=== PATIENT | female | born 1955 | race Caucasian/White ===

== ENCOUNTER 2020-07-22 06:47 | Outpatient (REF) | payer MEDICARE, SELFPAY ==
[2020-07-22 12:17] LABS: Alanine Aminotransferase 13 U/L (0-31); Anion Gap 17 (12-20); Aspartate Amino Transferase 25 U/L (5-31); Blood Urea Nitrogen 19 mg/dL (9-16); Calcium 9.6 mg/dL (8.4-10.2); Carbon Dioxide 27 mmol/L (22-29); Chloride 104 mmol/L (96-108); Cholesterol 223 mg/dL; Estimated Glomerular Filt Rate 60; Glucose Fasting 82 mg/dL (60-99); HDL Cholesterol 66 mg/dL; LDL Cholesterol Calculated 135 mg/dl; Potassium 4.2 mmol/l (3.3-5.1); Sodium 144 mmol/L (135-145); Triglycerides 114 mg/dL
== END 2020-07-22 06:48 | disposition home or self-care (01) ==
LOC: HO.HMGCLDS 06:47
PROVIDERS: PCP Internal Medicine; Visit Provider Internal Medicine
DX: I10 Essential (primary) hypertension (principal); Z78.0 Asymptomatic menopausal state; E78.5 Hyperlipidemia, unspecified
CPT/HCPCS: 80048; 80061; 82306; 84450; 84460

== ENCOUNTER 2020-09-21 08:36 | Outpatient (REF) | payer MEDICARE, SELFPAY ==
--- NOTE | 2020-09-21 08:40 | MM_ITS ---
EXAMINATION: BONE DENSITOMETRY CLINICAL INDICATION: Asymptomatic menopausal state. COMPARISON: None (current study represents initial baseline exam). TECHNIQUE: Using a [employer] DXA System (software version: 13.1) manufactured by [employer], dual-energy x-ray absorptiometry was performed of the lumbar spine and left hip. The images are of good technical quality. Summary results are attached. FINDINGS: AP SPINE L1-L4: BMD 1.009 g/cm2, Z-score 1.0, T-score -1.4, osteopenia. LEFT FEMUR, NECK: BMD 0.581 g/cm2, Z-score -1.3, T-score -3.3, osteoporosis. LEFT FEMUR, TOTAL: BMD 0.604 g/cm2, Z-score -1.4, T-score -3.2, osteoporosis. IDENTIFIED RISK FACTORS: Menopausal. HISTORY OF FRACTURE: Humerus. MEDICATIONS: Calcium supplements or multivitamin. MM/XR DEXA axial skeleton IMPRESSION: 1. DIAGNOSIS: Osteoporosis based on the lowest T-score value of -3.3 in the femoral neck applying World Health Organization criteria. 2. 10-YEAR FRACTURE RISK PREDICTION, FRAX: According to the guidelines, FRAX calculation should only be performed on patients in the osteopenia bone density category. Therefore, FRAX was not performed on this patient.? 3. Treatment Recommendations: NOF guidelines recommend consideration for treatment in postmenopausal women and men age 50 and older presenting with the following: -A hip or vertebral (clinical or morphometric) fracture. -T-score less than or equal to -2.5 at the femoral neck or spine after appropriate evaluation to exclude secondary causes. -Low bone mass at the hip or spine and a 10-year fracture probability by FRAX of greater than or equal to 3% for hip fracture or greater than or equal to 20% for major osteoporotic fracture based on the [place] adapted WHO algorithm. 4. Other Recommendations: All treatment decisions require clinical judgment and consideration of individual patient factors, including patient preferences, comorbidities, previous drug use, risk factors not captured in the FRAX model (e.g. frailty, falls, vitamin D deficiency, increased bone turnover, interval significant decline in bone density) and possible under or overestimation of fracture risk by FRAX. Additional medical evaluation for secondary cause of low bone mineral density may be appropriate. FUTURE SCAN RECOMMENDATION: People with diagnosed cases of osteoporosis or at high risk for fracture should have regular bone mineral density tests. For patients eligible for Medicare, routine testing is allowed once every 2 years. The testing frequency can be increased to one year for patients who have rapidly progressing disease, those who are receiving or discontinuing medical therapy to restore bone mass, or have additional risk factors.
== END 2020-09-21 08:37 | disposition home or self-care (01) ==
LOC: HO.MAMMO 08:36
PROVIDERS: PCP Internal Medicine; Visit Provider Internal Medicine
DX: Z13.820 Encounter for screening for osteoporosis (principal); Z78.0 Asymptomatic menopausal state; Z12.31 Encounter for screening mammogram for malignant neoplasm of breast
CPT/HCPCS: 77080

== ENCOUNTER 2020-12-06 07:50 | Outpatient (REF) | payer MEDICARE, SELFPAY ==
--- NOTE | ~2020-12-06 | MM_ITS ---
EXAMINATION: MM SCREENING DIGITAL BREAST TOMOSYNTHESIS, BILATERAL CLINICAL INFORMATION: Screening. Asymptomatic. The lifetime risk of breast cancer based on the Tyrer-Cuzick Model is 2.8%. COMPARISON: Mammography: November 23, 2014 and studies dating back to July 16, 2007 TECHNIQUE: Digital breast tomosynthesis is performed in both the craniocaudal and mediolateral oblique views along with computer-aided detection (CAD). Synthesized 2D images are generated from the tomosynthesis. FINDINGS: The breasts are heterogeneously dense, which may obscure small masses (ACR BI-RADS breast composition Category c). There are no significant masses, abnormal calcifications, or other abnormalities. MM/MM tomosynthesis screening BI IMPRESSION: There are no significant changes from prior study. ASSESSMENT: BI-RADS 1: Negative RECOMMENDATION: Routine annual mammography screening. This patient's information was entered into a reminder system with a target due date for their next mammogram.
== END 2020-12-06 07:51 | disposition home or self-care (01) ==
LOC: HO.MAMMO 07:50
PROVIDERS: PCP Internal Medicine; Visit Provider Internal Medicine
DX: Z12.31 Encounter for screening mammogram for malignant neoplasm of breast (principal)
CPT/HCPCS: 77063; 77067

== ENCOUNTER 2021-04-26 08:43 | Outpatient (REF) | payer MEDICARE, SELFPAY ==
[2021-04-26 11:53] LABS: Alanine Aminotransferase 12 U/L (0-31); Aspartate Amino Transferase 25 U/L (5-31); Cholesterol 272 mg/dL; HDL Cholesterol 89 mg/dL; LDL Cholesterol Calculated 167 mg/dl; Triglycerides 81 mg/dL
[2021-04-26 12:15] LABS: Vitamin D 25-OH Total 53.1 ng/mL (>30)
== END 2021-04-26 08:44 | disposition home or self-care (01) ==
LOC: HO.HMGCLDS 08:43
PROVIDERS: PCP Internal Medicine; Visit Provider Internal Medicine
DX: E78.2 Mixed hyperlipidemia (principal); Z78.0 Asymptomatic menopausal state
CPT/HCPCS: 36415; 80061; 82306; 84450; 84460

== ENCOUNTER 2021-07-19 06:02 | Outpatient (REF) | payer MEDICARE, SELFPAY ==
[2021-07-19 12:35] LABS: Alanine Aminotransferase 18 U/L (0-31); Aspartate Amino Transferase 30 U/L (5-31); Cholesterol 231 mg/dL; HDL Cholesterol 97 mg/dL; LDL Cholesterol Calculated 106 mg/dl; Triglycerides 140 mg/dL
== END 2021-07-19 06:03 | disposition home or self-care (01) ==
LOC: HO.HMGCLDS 06:02
PROVIDERS: PCP Internal Medicine; Visit Provider Internal Medicine
DX: E78.2 Mixed hyperlipidemia (principal)
CPT/HCPCS: 36415; 80061; 84450; 84460

== ENCOUNTER 2022-01-12 08:31 | Outpatient (REF) | payer MEDICARE, SELFPAY ==
--- NOTE | ~2022-01-12 | MM_ITS ---
EXAMINATION: MM SCREENING DIGITAL BREAST TOMOSYNTHESIS, BILATERAL CLINICAL INFORMATION: Screening. Asymptomatic. The lifetime risk of breast cancer based on the Tyrer-Cuzick Model is 2.5%. COMPARISON: Mammography: December 06, 2020 and studies dating back to September 15, 2009 TECHNIQUE: Digital breast tomosynthesis is performed in both the craniocaudal and mediolateral oblique views along with computer-aided detection (CAD). Synthesized 2D images are generated from the tomosynthesis. FINDINGS: There are scattered areas of fibroglandular density (ACR BI-RADS breast composition Category b). There are no significant masses, abnormal calcifications, or other abnormalities. MM/MM tomosynthesis screening BI IMPRESSION: There are no significant changes from prior study. ASSESSMENT: BI-RADS 1: Negative RECOMMENDATION: Routine annual mammography screening. This patient's information was entered into a reminder system with a target due date for their next mammogram.
[2022-01-12 11:33] LABS: Alanine Aminotransferase 17 U/L (0-31); Aspartate Amino Transferase 32 U/L (5-31); Cholesterol 249 mg/dL; HDL Cholesterol 98 mg/dL; LDL Cholesterol Calculated 127 mg/dl; Triglycerides 120 mg/dL
== END 2022-01-12 08:32 | disposition home or self-care (01) ==
LOC: HO.MAMMO 08:31
PROVIDERS: PCP Internal Medicine; Visit Provider Internal Medicine
DX: E78.2 Mixed hyperlipidemia (principal); Z12.31 Encounter for screening mammogram for malignant neoplasm of breast
CPT/HCPCS: 36415; 77063; 77067; 80061; 84450; 84460

== ENCOUNTER 2022-08-07 07:08 | Outpatient (REF) | payer MEDICARE, SELFPAY ==
[2022-08-07 13:06] LABS: Blood Urea Nitrogen 10 mg/dL (9-16)
[2022-08-07 13:20] LABS: Alanine Aminotransferase 25 U/L (0-31); Anion Gap 11 (12-20); Aspartate Amino Transferase 41 U/L (5-31); Calcium 9.8 mg/dL (8.4-10.2); Carbon Dioxide 30 mmol/L (22-29); Chloride 105 mmol/L (96-108); Cholesterol 242 mg/dL; Estimated Glomerular Filt Rate > 60; Glucose Fasting 83 mg/dL (60-99); HDL Cholesterol 85 mg/dL; LDL Cholesterol Calculated 99 mg/dl; Potassium 3.9 mmol/L (3.3-5.1); Sodium 142 mmol/L (135-145); Triglycerides 290 mg/dL; Vitamin D 25-OH Total 49.4 ng/mL (>30)
== END 2022-08-07 07:09 | disposition home or self-care (01) ==
LOC: HO.HMGCLDS 07:08
PROVIDERS: PCP Internal Medicine; Visit Provider Internal Medicine
DX: M81.0 Age-related osteoporosis without current pathological fracture (principal); E78.2 Mixed hyperlipidemia; Z78.0 Asymptomatic menopausal state
CPT/HCPCS: 36415; 80048; 80061; 82306; 84450; 84460

== ENCOUNTER 2022-08-09 10:45 | Outpatient (AMB) | payer MEDICARE, SELFPAY ==
--- NOTE | 2022-08-09 10:48 | MHC.PC.OV ---
Vital Signs 08/09/22 10:55 Height 5 ft 1 in Weight 96 lb 8 oz BMI 18.2 BP 130/64 Blood Pressure Location Lt brachial Position Sitting Pulse 94 Pulse Source Pulse Oximeter Pulse Oximetry (%) 99 Oxygen Delivery Method Room Air Intake Visit Reasons: 6 months f/u Intake Note: Pt is here today for her 6 months Allergies No Known Allergies Allergy (Verified 09/29/23 01:16) Medication List - Last Reconciled 08/09/22 by Saira Crooks MD [id number] 1 tab PO DAILY rosuvastatin 5 mg PO 2XW Tobacco use date assessed: 08/09/22 Fall risk assessment: No Falls in past year Last assessed Fall Risk: 08/09/22 HPI 6 months f/u HPI Details 67-year-old lady with dyslipidemia, here today for follow-up. Currently takes rosuvastatin 5 mg taken 1 tablet twice a week, no problems with taking the medication. However she has been eating more shrimp, shellfish lately and recent fasting labs showed markedly elevated triglyceride levels as compared to last check, but LDL cholesterol is within normal limits. She also had the bone density scan done earlier this year which showed presence of osteoporosis, has an appointment to see Dr. Benson further evaluation and management. Does not take any vitamin-D or calcium supplements but last vitamin-D and calcium levels were within normal limits. No history of any fractures She is up-to-date with her COVID vaccination including the new COVID booster, has not yet had her flu shot or shingles vaccination or pneumonia vaccine. [facility] Medical History Dyslipidemia Mixed dyslipidemia Osteoporosis Degenerative disc disease, cervical Menopause Surgical History (Updated 12/20/23 @ 11:18 by Damaris Chino RN) Hx of colonoscopy Fracture of arm History of lumpectomy Family History Father No problems noted. Mother No problems noted. Brother No problems noted. Brother No problems noted. Sister No problems noted. Sister No problems noted. Sister No problems noted. Son No problems noted. Daughter No problems noted. Maternal Grandmother Breast cancer Social History Housing: House Alcohol intake: current Alcohol intake frequency: holidays/special occasions only Patient Tobacco Use Status: Former Tobacco user Years Smoked: 10 yrs e-Cigarette/Vaping Use: Never Used Second Hand Smoke Exposure: No Current occupational status: retired Cognitive needs: No Hearing needs: No Vision needs: Yes Questionnaire PHQ-9 Over the last 2 weeks, how often have you been bothered by any of the following problems? 1. Little interest or pleasure in doing things: not at all 2. Feeling down, depressed, or hopeless: not at all 3. Trouble falling or staying asleep, or sleeping too much: not at all 4. Feeling tired or having little energy: not at all 5. Poor appetite or overeating: not at all 6. Feeling bad about yourself - or that you are a failure or have let yourself or your family down: not at all 7. Trouble concentrating on things, such as reading the newspaper or watching television: not at all 8. Moving or speaking so slowly that other people could have noticed. Or the opposite - being so fidgety or restless that you have been moving around a lot more than usual: not at all 9. Thoughts that you would be better off or of hurting yourself in some way: not at all Total score: 0 Depression Screening Interpretation: Negative [id number] - PHQ-9 Billing: Yes Source: Developed by Drs. Bossman Glez, May Walker, Dmitri Matthews and colleagues, with an educational sonja from [employer]. Thrive Questionnaire Declines Thrive assessment: No Date Thrive assessed: 08/09/22 I am a: Patient What is your living situation today?: I have a steady place to live Within the past 12 months, did the food you bought not last and you didn't have the money to get more?: Never true Within the past 12 months, did you worry whether your food would run out before you got money to buy more?: Never true Do you have trouble paying for medicines?: No Do you have trouble getting transportation to medical appointments?: No Do you have trouble paying your heating and electricity bill?: No Do you have trouble taking care of your child, family member or friend?: No Do you have trouble with day-to-day activities such as bathing, preparing meals, shopping, managing finances, etc.?: No Are you currently unemployed and looking for a job?: No Are you interested in more education?: No MIKHAIL-7 AMB Questionnaire MIKHAIL-7 Date MIKHAIL - 7 assessed: 08/09/22 Feeling nervous, anxious, or on edge: 0 = Not at all Not being able to stop or control worryin = Not at all Worrying too much about different things: 0 = Not at all Trouble relaxin = Not at all Being so restless that it is hard to sit still: 0 = Not at all Becoming easily annoyed or irritable: 0 = Not at all Feeling afraid as if something awful might happen: 0 = Not at all Total MIKHAIL-7 score (0-4 normal; 5-9 mild; 10-14 moderate; 15-21 severe): 0 Source: Developed by Drs. Bossman Glez, May Walker, Dmitri Matthews and colleagues, with an educational sonja from [employer]. MIKHAIL-7 Assessment Billing MIKHAIL-7 Assessment Tool: MIKHAIL-7 Assessment 77338 Review of Systems Const Denies body aches, Denies fatigue, Denies fever(s), Denies headache(s) and Denies weakness Eyes Denies change in vision ENT Denies dizziness and Denies headache(s) Card Denies chest pain, Denies lightheadedness, Denies palpitations and Denies dyspnea Resp Denies cough and Denies dyspnea GI Denies abdominal pain, Denies change in bowel habits and Denies heartburn Musc Details: No history of fractures Reports no additional complaints Neuro Denies dizziness, Denies headache(s) and Denies weakness Endo Denies fatigue, Denies polydipsia, Denies polyuria and Denies palpitations Physical exam (Primary Care) Vital Signs: Last Vital Signs Pulse 94 08/09/22 10:55 BP 130/64 08/09/22 10:55 Pulse Ox 99 08/09/22 10:55 Oxygen Delivery Method Room Air 08/09/22 10:55 BMI result Body Mass Index 18.2 Tobacco/Smoking Status: Tobacco use Status Tobacco use date assessed 08/09/22 08/09/22 10:50 Patient Tobacco Use Status Former Tobacco user 08/09/22 10:50 e-Cigarette/Vaping Use Never Used 08/09/22 10:50 PHQ-9: PHQ-9 Score PHQ-9: Total score 0 08/09/22 11:07 Depression Screening Interpretation: Negative Thrive Assessment: Date of Thrive Assessment Date Thrive assessed 08/09/22 08/09/22 10:58 Const General: cooperative, comfortable and no acute distress Orientation/consciousness: patient oriented x3 Limitations: no limitations HENMT Ears: hearing grossly normal bilaterally General nose exam: Normal external nose present Mouth: Normal oral and palatal mucosa present, oropharynx normal and moist mucous membranes Eyes General: appearance normal, both eyes and all related structures Neck Neck: Yes full ROM, Yes no lymphadenopathy and Yes supple Resp Effort & Inspection: normal respiratory effort and able to speak in complete sentences Auscultation: clear to auscultation bilaterally Cardio Rate: regular rate Rhythm: regular rhythm Heart sounds: S1 normal heart sound present and S2 normal heart sound present GI Inspection: Yes normal to inspection Palpation (GI): Soft to palpation, nontender and no masses Auscultation: normal bowel sounds Back/Spine/Pelvis Cervical Spine: cervical ROM normal Thoracic/Lumbar Spine: thoracic and lumbar spine normal to inspection Neuro General: patient oriented x3, gait normal, tone normal, moves all extremities, Normal light touch and pain sensation and no focal motor deficits Cognition (Neuro): normal cognition Gait exam (Neuro): Normal gait present Motor exam (neuro): 5/5 motor strength present throughout Extrem General: Yes full ROM, Yes no joint enlargement, Yes no clubbing, cyanosis or edema, Yes no calf tenderness and Yes normal gait Immunizations pneumoc 20-swetha conj-dip cr(PF) 0.5 mL IM syringe Performing Provider: Saira Crooks MD Performing Location: [facility] Administered by: Vanessa Carmichael CMA on 08/09/22 11:31 Dose Route Admin Location Dispensed Lot Number Expiration Date [employer] 0.5 mL IM Left Deltoid 0.5 mL [id number] 12/08/22 [employer] VIS Given Date VIS Provided VIS Publication Date 08/09/22 Single Vaccine 21 Eligibility Eligibility Date Funding Source Not VFC Eligible 08/09/22 Private Results Reviewed Results Reviewed: NTERED: 08/07/22-[address]: ORDERED: Met Prof Fast, AST, ALT, Lipid Panel, Vitamin D 25-OH Test Result Flag Reference Site Sodium 142 135-145 mmol/L Potassium 3.9 3.3-5.1 mmol/L CL 105 96-108 mmol/L CO2 30 H 22-29 mmol/L Gap 11 L 12-20 BUN 10 9-16 mg/dL Creat 0.75 0.5-1.4 mg/dL EGFR > 60 NOTE: For -[place] individuals, multiply the result by 1.210. Chronic Kidney Disease: Estimated GFR < 60 mL/min/1.73m2 Severe Kidney Disease: Estimated GFR < 15 mL/min/1.73m2 FBS 83 60-99 mg/dL CA 9.8 8.4-10.2 mg/dL AST (GOT) 41 H 5-31 U/L ALT (GPT) 25 0-31 U/L Triglyceride 290 mg/dL Desirable Triglyceride: less than 150 mg/dL Borderline High Triglyceride 150-199 mg/dL High Triglyceride: 200-499 mg/dL Very High Triglyceride: greater than or equal to 5OO mg/dL Chol 242 mg/dL Desirable Cholesterol: less than 200 mg/dL Borderline High Cholesterol: 200-239 mg/dL High Cholesterol: greater than 239 mg/dL LDL Calculated 99 mg/dl Desirable LDL: less than 100 mg/dL Near Optimal/Above Optimal LDL: 110-129 mg/dL Borderline High LDL: 130-159 mg/dL High LDL: 160-189 mg/dL Very High LDL: greater than or equal to 190 mg/dL HDL 85 mg/dL Desirable HDL: greater than 40 mg/dL Note: This HDL assay may give artificially low results in patients with liver disease. Vit D 25-OH Tot 49.4 >30 ng/mL Health Based Reference Values* < 20 ng/mL Deficient 20-30 ng/mL Insufficient > 30 ng/mL Sufficient Assessment and Plan Assessment & Plan (1) Osteoporosis: Code(s): M81.0 - Age-related osteoporosis without current pathological fracture Qualifiers: Osteoporosis type: age-related Presence of current pathological fracture: without current pathological fracture Qualified Code(s): M81.0 - Age-related osteoporosis without current pathological fracture Plan: Patient advised to do regular weight-bearing exercise at least 15 minutes daily, start taking gujq-vot-zhszarn vitamin D3 at 2000 units daily, and take adequate calcium from dietary sources. Patient has an appointment for endocrine consult with Dr. Benson already scheduled, to discuss further treatment and management of her osteoporosis (2) Dyslipidemia: Code(s): E78.5 - Hyperlipidemia, unspecified Plan: Reviewed recent fasting lipid profile with patient with elevated triglycerides and normal LDL cholesterol . Continue with rosuvastatin 5 mg taken 1 tablet twice a week, and advised to start taking [id number]-btcnkwo [place] 3 fatty acid supplements , in addition to adherence to low-cholesterol diet cutting back on her intake of shrimp and shellfish, and regular exercise, at least 30 minutes 3 to 4 times a week. Advised patient to make healthy food choices, eat more fruits, vegetables, whole grains, wild caught fish and low-fat dairy. Limit amount of meat and fried or fatty food products, as well as processed foods and fast foods. Follow-up scheduled with repeat fasting lipid panel in 4 months. (3) Need for pneumococcal vaccine: Code(s): Z23 - Encounter for immunization Plan: Prevnar 20 given today mild reminded to get her flu shot for this year and her shingles vaccination, both given at the pharmacy Orders: Orders Lipid Panel 6 Months E78.5 - Hyperlipidemia, unspecified Aspartate Amino Transferase 6 Months E78.5 - Hyperlipidemia, unspecified Alanine Aminotransferase 6 Months E78.5 - Hyperlipidemia, unspecified Pneumococcal 20 Immunization 08/09/22 Z23 - Encounter for immunization Medications: Refilled rosuvastatin 5 mg PO 2XW 26 tabs 4RF E78.2 - Mixed hyperlipidemia Coding Level of Care Code Est Pt Level 4 (84234) Diagnoses Age-related osteoporosis without current pathological fracture M81.0 Osteoporosis type: age-related Presence of current pathological fracture: without current pathological fracture Dyslipidemia E78.5 Need for pneumococcal vaccine Z23 Additional Codes MIKHAIL-7 Assessment Billing - MIKHAIL-7 Assessment Tool: MIKHAIL-7 Assessment 09857 ([id number])
[2022-08-09 10:55] VITALS: BP 130/64; PULSE 94; O2SAT 99; BMI 18.2
== END 2022-08-09 16:24 | disposition home or self-care (01) ==
LOC: HO.HMGC 10:45
PROVIDERS: PCP Internal Medicine; Visit Provider Internal Medicine
DX: M81.0 Age-related osteoporosis without current pathological fracture (principal); E78.5 Hyperlipidemia, unspecified; Z23 Encounter for immunization
CPT/HCPCS: 99499

== ENCOUNTER 2022-10-25 12:06 | Outpatient (REF) | payer MEDICARE, SELFPAY ==
[2022-10-25 16:10] LABS: Creatinine, mg/dL 49.11
[2022-10-25 16:15] LABS: Creatinine, 24Hr Urine 0.4 G/Day (1.0-2.0); Total Volume 24 Hour Urine 900 mL
[2022-10-27 17:48] LABS: Calcium, 24 Hr Urine 32 mg/24 h; Calcium/Creatinine Ratio 73 mg/g creat (30-275); Creatinine 24Hr Urine 0.44 g/24 h (0.50-2.15)
== END 2022-10-25 12:07 | disposition home or self-care (01) ==
LOC: HO.HMGCLNP 12:06
PROVIDERS: Visit Provider Internal Medicine Endocrinology, Diabetes & Metabolism
DX: M81.0 Age-related osteoporosis without current pathological fracture (principal)
CPT/HCPCS: 82340; 82570

== ENCOUNTER → 2022-10-27 08:46 | Outpatient (BNVA) | payer MEDICARE, SELFPAY | PROVIDERS: PCP Internal Medicine; Visit Provider Internal Medicine Endocrinology, Diabetes & Metabolism | DX: M81.0 Age-related osteoporosis without current pathological fracture (principal); Z78.0 Asymptomatic menopausal state | CPT/HCPCS: 99202 ==

== ENCOUNTER 2023-01-15 07:54 | Outpatient (REF) | payer MEDICARE, SELFPAY ==
--- NOTE | ~2023-01-15 | MM_ITS ---
EXAMINATION: MM SCREENING DIGITAL BREAST TOMOSYNTHESIS, BILATERAL CLINICAL INFORMATION: Screening. Asymptomatic. The lifetime risk of breast cancer based on the Tyrer-Cuzick Model is 2%. COMPARISON: Mammography: 01/12/2022, 12/06/2020, 11/23/2014 TECHNIQUE: Digital breast tomosynthesis is performed in both the craniocaudal and mediolateral oblique views along with computer-aided detection (CAD). Synthesized 2D images are generated from the tomosynthesis. FINDINGS: There are scattered areas of fibroglandular density (ACR BI-RADS breast composition Category b). There is denser breast tissue composition in the bilateral anterior breasts similar to prior studies. No developing density or architectural abnormality. There are no significant masses, abnormal calcifications, or other abnormalities. The axilla and skin contours are unremarkable. MM/MM tomosynthesis screening BI IMPRESSION: No mammographic evidence of malignancy. ASSESSMENT: BI-RADS 1: Negative RECOMMENDATION: Routine annual mammography screening. This patient's information was entered into a reminder system with a target due date for their next mammogram.
== END 2023-01-15 07:55 | disposition home or self-care (01) ==
LOC: HO.MAMMO 07:54
PROVIDERS: Visit Provider Internal Medicine
DX: Z12.31 Encounter for screening mammogram for malignant neoplasm of breast (principal)
CPT/HCPCS: 77063; 77067

== ENCOUNTER 2023-01-24 06:29 | Outpatient (REF) | payer MEDICARE, SELFPAY ==
[2023-01-24 12:59] LABS: Alanine Aminotransferase 24 U/L (0-31); Aspartate Amino Transferase 39 U/L (5-31); Cholesterol 261 mg/dL; HDL Cholesterol 93 mg/dL; LDL Cholesterol Calculated 137 mg/dl; Phosphorus 3.6 mg/dL (2.7-4.5); Triglycerides 158 mg/dL
[2023-01-24 13:25] LABS: Free T4 (Free Thyroxine) 0.79 ng/dL (0.71-1.85); Thyroid Stimulating Hormone 6.11 uIU/mL (0.32-4.0)
[2023-01-26 22:19] LABS: Prot Elec - Albumin 4.6 g/dL (3.8-4.8); Prot Elec - Alpha1 0.3 g/dL (0.2-0.3); Prot Elec - Alpha2 0.9 g/dL (0.5-0.9); Prot Elec - Beta 1 0.4 g/dL (0.4-0.6); Prot Elec - Beta 2 0.3 g/dL (0.2-0.5); Prot Elec - Total Protein 7.4 g/dL (6.1-8.1)
== END 2023-01-24 06:30 | disposition home or self-care (01) ==
LOC: HO.HMGCLDS 06:29
PROVIDERS: Absent Provider Internal Medicine Endocrinology, Diabetes & Metabolism; PCP Internal Medicine; Visit Provider Internal Medicine
DX: M81.0 Age-related osteoporosis without current pathological fracture (principal); E78.5 Hyperlipidemia, unspecified; Z78.0 Asymptomatic menopausal state
CPT/HCPCS: 80061; 84100; 84165; 84439; 84443; 84450; 84460; 86335

== ENCOUNTER 2023-02-16 07:08 | Outpatient (REF) | payer MEDICARE, SELFPAY ==
[2023-02-16 12:28] LABS: Free T4 (Free Thyroxine) 0.72 ng/dL (0.71-1.85); Thyroid Stimulating Hormone 5.13 uIU/mL (0.32-4.0)
[2023-02-19 13:38] LABS: Thyroid Peroxidase Antibodies 1 IU/mL (<9)
== END 2023-02-16 07:09 | disposition home or self-care (01) ==
LOC: HO.HMGCLDS 07:08
PROVIDERS: PCP Internal Medicine; Visit Provider Internal Medicine Endocrinology, Diabetes & Metabolism
DX: M81.0 Age-related osteoporosis without current pathological fracture (principal); R53.83 Other fatigue
CPT/HCPCS: 84439; 84443; 86335; 86376

== ENCOUNTER → 2023-02-20 08:35 | Outpatient (BNVA) | payer MEDICARE, SELFPAY | PROVIDERS: PCP Internal Medicine; Visit Provider Internal Medicine Endocrinology, Diabetes & Metabolism | DX: M81.0 Age-related osteoporosis without current pathological fracture (principal) | CPT/HCPCS: 99212 ==

== ENCOUNTER 2023-07-31 06:49 | Outpatient (REF) | payer MEDICARE, SELFPAY ==
[2023-07-31 12:01] LABS: Alanine Aminotransferase 34 U/L (0-31); Aspartate Amino Transferase 66 U/L (5-31); Cholesterol 223 mg/dL (<200); HDL Cholesterol 81 mg/dL (>40); LDL Cholesterol Calculated 96 mg/dL (<100); Triglycerides 230 mg/dL (<150)
== END 2023-07-31 06:50 | disposition home or self-care (01) ==
LOC: HO.HMGCLDS 06:49
PROVIDERS: PCP Internal Medicine; Visit Provider Internal Medicine
DX: E78.5 Hyperlipidemia, unspecified (principal)
CPT/HCPCS: 36415; 80061; 84450; 84460

== ENCOUNTER 2023-08-06 08:30 | Outpatient (AMB) | payer MEDICARE, SELFPAY ==
--- NOTE | 2023-08-06 08:32 | A.OFFVIS_ITS ---
Intake Vital Signs 08/06/23 08:33 Height 5 ft 1.3 in Weight 97 lb 4 oz BMI 18.2 BP 130/88 Blood Pressure Location Rt brachial Position Sitting Pulse 93 Pulse Source Pulse Oximeter Pulse Oximetry (%) 98 Oxygen Delivery Method Room Air Intake Visit Reasons: AWV G0438 Intake Note: pt is here for her AWV Allergies No Known Allergies Allergy (Verified 08/06/23 09:39) Medication List - Last Reconciled 08/06/23 by Saira Crooks MD ytjacmzhvtyi-jqzrlgnl-brjqgv 1 tab PO DAILY rosuvastatin 5 mg PO 2XW HPI AWV G0438 HPI Details AWV ? 68 year old lady with dyslipidemia, osteoporosis, degenerative disc disease in the cervical spine, presents for her Annual Wellness Visit, initial visit.? She is up-to-date with her screening mammogram done January 15, and had a bone density scan done 09/21/2020 which showed presence of osteoporosis left femoral neck, currently followed by Dr. Benson. She no longer gets her cervical cancer screening, is overdue for a screening colonoscopy, has an appointment already with Dr. Bañuelos for preoperative exam. She had a fasting lipid panel done 07/31/2023 which showed presence of elevated triglycerides and normal fasting blood sugar done 08/07/2022. She is up-to-date with her COVID vaccine including booster, up-to-date with her pneumococcal vaccination,, but needs her yearly flu shot and Shingrix vaccination. ? Medical / Social History Reviewed? Past Medical History ?Yes . ? [place] of Care / Care Team list updated ?Yes . ? Surgical/Hospitalization History ?Yes . ? Current Medications (including OTC and supplements) ?Yes . ? Family History ?Yes . ? Tobacco Control form ?Yes . ? AUDIT-C (Alcohol use) form ?Yes . ? Illicit drug use in Social History ?Yes . ? Current diagnosis of depression? ?No ? Appropriate PHQ2/PHQ9 completed ?Yes . ? Data entered by ?[employer] and reviewed by provider ? Fall Risk ? Fall History? Have you had any falls with injury in the past year? ?No . ? Have you had two or more falls in the past year? ?No . ? Fall Risk Assessment: ?No falls in the past year . ? HRA filled out by the patient, reviewed by Provider and scanned. ? IPPE/AWV ? Balance? Romberg ?Yes . ? Tandem walk ?Yes . ? Walk and Turn ?Yes . ? Rise from sit to stand ?Yes . ?Vision? Corrective lens ?Yes ? Vision screen ? Up-to-date, sees Dr Goddard ?Hearing? Whisper test ?fail , has impacted cerumen in right ear. ?Written Plan?Completed. See Patient Documents.? PFSH Medical History Dyslipidemia Mixed dyslipidemia Osteoporosis Degenerative disc disease, cervical Menopause Surgical History Fracture of arm History of lumpectomy Family History Father No problems noted. Mother No problems noted. Brother No problems noted. Brother No problems noted. Sister No problems noted. Sister No problems noted. Sister No problems noted. Son No problems noted. Daughter No problems noted. Maternal Grandmother Breast cancer Social History Housing: House Alcohol intake: current Alcohol intake frequency: holidays/special occasions only Patient Tobacco Use Status: Former Tobacco user Years Smoked: 10 yrs e-Cigarette/Vaping Use: Never Used Second Hand Smoke Exposure: No Current occupational status: retired Cognitive needs: No Hearing needs: No Vision needs: Yes Questionnaire Medicare Wellness Checkup What [age] What gender do you identify with?: female During the past 4 weeks, how much have you been bothered by emotional problems such as feeling anxious, depressed, irritable, sad or downhearted, and blue?: not at all During the past 4 weeks, has your physical & emotional health limited your social activities with family, friends, neighbors, or groups?: not at all During the past 4 weeks, how much bodily pain have you generally had?: no pain During the past 4 weeks, was someone available to help you if you needed & wanted help?: yes, as much as I wanted During the past 4 weeks, what was the hardest physical activity you could do for at least 2 minutes?: moderate Can you get to places out of walking distance without help? (For eg., can you travel alone on buses, taxis or drive your car?): Yes Can you go shopping for groceries or clothes without someone's help?: Yes Can you prepare your own meals?: Yes Can you do your housework without help?: Yes Because of any health problems, do you need the help of another person with your personal care needs such as eating, bathing, dressing or getting around the house?: No Can you handle your own money without help?: Yes During the past 4 weeks, how would you rate your health in general?: very good During the past 4 weeks how have things been going for you?: very well; could hardly better Are you having difficulties driving your car?: no Do you always fasten your seat belt when you are in a car?: no During past 4 weeks, have you been bothered by the following: never: Falling or dizzy when standing up, Sexual problems?, Trouble eating well?, Teeth or denture problems?, Problems using the telephone? and Tiredness or fatigue? Have you fallen 2 or more times in the past year?: No Are you afraid of falling?: Yes Are you a smoker?: no During the past 4 weeks, how many drinks of wine, beer, or other alcoholic beverages did you have?: 6-9 drinks per week Do you exercise for about 20 minutes 3 or more times a week?: yes, most of the time Have you been given information to help with the following?: no: Hazards in your house that might hurt you? and no: Keeping track of your medications? How often do you have trouble taking medicines the way you have been told to take them?: I always take medicine as prescribed How confident are you that you can control & manage most of your health problems?: very confident What is your race?: White Mini Mental State Exam (MMSE) Orientation What is the (year) (season) (date) (day) (month)?: year (2022), season (Fall), date (08/06/2023), day (Sunday) and month (July) Where are we (state) (county) (town or city) (hospital) (floor)?: state ([place]), counts include 234 beds at the [facility] ([place]), town or city ([place]) and hospital/clinic ([facility]) Score Score: 9 Activity of Daily Living Bathing - sponge bath, tub bath or shower: receives no assistance (gets in/out by self, if usual bathing means Dressing - getting clothes from closets & drawers, including inner/outer garments & fasteners.: gets clothes & gets completely dressed without help Toileting - going to the 'toilet room' for urine/bowel elimination & cleaning self/arranging clothes: goes to toilet room, cleans self, arranges clothes without help Transfer: moves in & out of bed and chair without help (may use support object) Continence: controls urination/bowel movements completely by self Feeding: feeds self without help Total Score: 0 Information obtained from: patient Using telephone: independent Traveling: independent Shopping: independent Preparing meals: independent Housework: independent Taking medicine: independent Managing money: independent PHQ-9 Over the last 2 weeks, how often have you been bothered by any of the following problems? 1. Little interest or pleasure in doing things: not at all 2. Feeling down, depressed, or hopeless: not at all 3. Trouble falling or staying asleep, or sleeping too much: not at all 4. Feeling tired or having little energy: not at all 5. Poor appetite or overeating: not at all 6. Feeling bad about yourself - or that you are a failure or have let yourself or your family down: not at all 7. Trouble concentrating on things, such as reading the newspaper or watching television: not at all 8. Moving or speaking so slowly that other people could have noticed. Or the opposite - being so fidgety or restless that you have been moving around a lot more than usual: not at all 9. Thoughts that you would be better off or of hurting yourself in some way: not at all Total score: 0 Depression Screening Interpretation: Negative Depression Screening Done: Yes 14382 - PHQ-9 Billing: Yes Source: Developed by Drs. Bossman Glez, May Walker, Dmitri Matthews and colleagues, with an educational sonja from [employer]. Physical Exam Vital Signs: Last Vital Signs Pulse 93 08/06/23 08:33 BP 130/88 08/06/23 08:33 Pulse Ox 98 08/06/23 08:33 Oxygen Delivery Method Room Air 08/06/23 08:33 BMI result Body Mass Index 18.2 Assessment & Plan Assessment & Plan (1) Encounter for annual wellness visit (AWV) in Medicare patient: Code(s): Z00.00 - Encounter for general adult medical examination without abnormal findings Plan: Medical wellness checklist reviewed, discussed with patient and updated, copy given. Reminded to get her Shingrix vaccine and have shot at the pharmacy. (2) Dyslipidemia: Code(s): E78.5 - Hyperlipidemia, unspecified Plan: Currently taking rosuvastatin 5 mg 1 tab twice a week, in addition to adhering to low-cholesterol diet and getting regular exercise. (3) Osteoporosis: Code(s): M81.0 - Age-related osteoporosis without current pathological fracture Qualifiers: Osteoporosis type: age-related Presence of current pathological fracture: without current pathological fracture Qualified Code(s): M81.0 - Age- related osteoporosis without current pathological fracture Plan: Currently followed by endocrine clinic (4) Advanced directives, counseling/discussion: Code(s): Z71.89 - Other specified counseling Plan: Initiated the conversation about Advanced Directives. Advanced Directives help patients prepare for current and future decisions about their medical treatment and place of care. Discussed with patient that it is a process where a patients current condition and prognosis are reviewed, their wishes for information regarding their illness are elicited, and likely medical dilemmas are presented and options discussed. MOLST form completed today, patient already has a living will and care proxy in place will provide us with a copy. These forms can be amended as needed, reviewed yearly and make changes as needed Quality Reporting (2019) Depression/Bipolar (159/160/161/177) PHQ-9: Total score: 0 Coding Level of Care Code Medicare First (G0438) Diagnoses Encounter for annual wellness visit (AWV) in Medicare patient Z00.00 Dyslipidemia E78.5 Age-related osteoporosis without current pathological fracture M81.0 Osteoporosis type: age-related Presence of current pathological fracture: without current pathological fracture Advanced directives, counseling/discussion Z71.89 CPT Codes Advance Care Planning - Time spent: 16-45 minutes ([id number]) Advance Care Planning Advance Care Planning discussion: Completed/Scanned Date of discussion: 08/06/23 Who was present: patient Forms completed: MOLST Time spent: 16-45 minutes Actual minutes spent: 16
[2023-08-06 08:33] VITALS: BP 130/88; PULSE 93; O2SAT 98; BMI 18.2
== END 2023-08-06 12:39 | disposition home or self-care (01) ==
PROVIDERS: Visit Provider Internal Medicine
DX: Z00.00 Encounter for general adult medical examination without abnormal findings (principal); E78.5 Hyperlipidemia, unspecified; M81.0 Age-related osteoporosis without current pathological fracture; Z71.89 Other specified counseling
CPT/HCPCS: 99497; G0438

== ENCOUNTER → 2023-08-20 08:19 | Outpatient (BNVA) | payer MEDICARE, SELFPAY | PROVIDERS: PCP Internal Medicine; Visit Provider Physician Assistant ==

== ENCOUNTER 2023-09-05 10:28 | Outpatient (AMB) | payer MEDICARE, SELFPAY ==
[2023-09-05 10:40] VITALS: BP 140/82; PULSE 97; O2SAT 100; BMI 18.8
--- NOTE | 2023-09-05 10:40 | MHC.PC.OV ---
Vital Signs 09/05/23 10:40 Height 5 ft 1 in Weight 99 lb 6 oz BMI 18.8 BP 140/82 H Blood Pressure Location Lt brachial Position Sitting Pulse 97 Pulse Source Pulse Oximeter Pulse Oximetry (%) 100 Oxygen Delivery Method Room Air Intake Visit Reasons: ear cleaning Intake Note: Pt is here to have her right ear checked and cleaned Allergies No Known Allergies Allergy (Verified 09/29/23 01:16) Medication List - Last Reconciled 09/29/23 by Saira Crooks MD bisacodyl (Dulcolax (bisacodyl)) 20 mg (4 x 5 mg) PO ONCE 1 day vohttxflwxxb-quyjfqnm-xfbcqv 1 tab PO DAILY polyethylene glycol 3350 (Miralax) 238 grams PO ONCE PRN 1 day rosuvastatin 5 mg PO 2XW Tobacco use date assessed: 01/26/23 Fall risk assessment: No Falls in past year Last assessed Fall Risk: 09/05/23 Dental Screening Dental Screen Date: 09/05/23 Did you have a dental visit in the last 12 months?: Yes Did you have a dental problem in the last 6 months where you did not have access to dental care?: No Was dental information given to patient?: Patient has dentist HPI HPI Comments History of Present Illness Details 68-year-old lady here today complaining of irritation inside right ear canal, thinks she has a lot of wax to building up, as she has noticed some decreased hearing from her right ear. [facility] Medical History Dyslipidemia Mixed dyslipidemia Osteoporosis Degenerative disc disease, cervical Menopause Surgical History Fracture of arm History of lumpectomy Family History Father No problems noted. Mother No problems noted. Brother No problems noted. Brother No problems noted. Sister No problems noted. Sister No problems noted. Sister No problems noted. Son No problems noted. Daughter No problems noted. Maternal Grandmother Breast cancer Social History Housing: House Alcohol intake: current Alcohol intake frequency: holidays/special occasions only Patient Tobacco Use Status: Former Tobacco user Years Smoked: 10 yrs e-Cigarette/Vaping Use: Never Used Second Hand Smoke Exposure: No Current occupational status: retired Cognitive needs: No Hearing needs: No Vision needs: Yes Questionnaire Thrive Questionnaire Date Thrive assessed: 08/09/22 MIKHAIL-7 AMB Questionnaire MIKHAIL-7 Date MIKHAIL - 7 assessed: 08/09/22 Source: Developed by Drs. Bossman Glez, May Walker, Dmitri Matthews and colleagues, with an educational sonja from [employer]. Review of Systems Const All systems reviewed & are unremarkable except as noted in HPI and below Physical exam (Primary Care) Vital Signs: Last Vital Signs Pulse 97 09/05/23 10:40 BP 140/82 H 09/05/23 10:40 Pulse Ox 100 09/05/23 10:40 Oxygen Delivery Method Room Air 09/05/23 10:40 BMI result Body Mass Index 18.8 Tobacco/Smoking Status: Tobacco use Status Tobacco use date assessed 01/26/23 09/05/23 10:44 Patient Tobacco Use Status Former Tobacco user 09/05/23 10:44 e-Cigarette/Vaping Use Never Used 09/05/23 10:44 Thrive Assessment: Date of Thrive Assessment Date Thrive assessed 08/09/22 09/05/23 10:44 Const Other: Alert oriented x3, no acute distress HENMT Ears: external ears normal, TM normal on the left and Abnormal EAC present excessive cerumen on the right Assessment and Plan Assessment & Plan (1) Impacted cerumen of right ear: Code(s): H61.21 - Impacted cerumen, right ear Plan: Instilled mixture of hydrogen peroxide and sees sterile water inside right ear canal, and successfully removed impacted cerumen from right ear canal through ear irrigation with warm water. Patient tolerated procedure well Coding Level of Care Code Est Pt Level 3 (01861) Diagnoses Impacted cerumen of right ear H61.21
== END 2023-09-05 12:03 | disposition home or self-care (01) ==
PROVIDERS: PCP Internal Medicine; Visit Provider Internal Medicine
DX: H61.21 Impacted cerumen, right ear (principal)
CPT/HCPCS: 99213

== ENCOUNTER 2023-12-20 10:52 | Day surgery (SDC) | payer MEDICARE, SELFPAY ==
[2023-12-17 15:21] VITALS: BMI 17.9
--- NOTE | 2023-12-20 11:06 | MHC.SHP ---
Pre-Procedural Eval Section A - 24 Hr Update-Section A only Date of Service: 12/20/23 Section B - Complete if H&P > 30 days Chief Complaint: screening Details of Present Illness: PMH: Dyslipidemia Mixed dyslipidemia Osteoporosis Degenerative disc disease, cervical Menopause Surgical History Fracture of arm History of lumpectomy Present Medications: see Short Stay Collaborative assessment Allergies: Allergies Allergy/AdvReac Type Severity Reaction Status Date / Time No Known Allergies Allergy Verified 09/29/23 01:16 Review of Systems Review of Systems Comment: 10 point ROS negative insert Exam Exam Comment: Gen appear: No acute distress HEENT: no icterus Chest: No overt resp distress Abd: soft, nontender, nondistended Psych: Stable affect, answering questions appropriately Neuro: A/Ox3 noted to move all extremities spontaneously Ext: no peripheral edema Plan Diagnosis/Plan: Unchanged I have reviewed the history and physical and performed a pertinent physical examination on my patient. No changes have occurred unless specified. Time Spent With Patient Time: Total time managing care of this patient today ____ minutes.
[2023-12-20 11:07] VITALS: BP 191/93; PULSE 93; RESP 18; TEMP 36.2; O2SAT 97
--- NOTE | 2023-12-20 11:15 | HO.ANESPROP2 ---
Documented by User: Lora Browne NP 12/19/23 09:47 HPI - Anesthesia Eval Consult details Narrative: 68yo F for Colonoscopy PMFSH Active Problems Active Problems: All Active Problems Elevated liver enzymes (Acute) Encounter for screening colonoscopy (Acute) Dyslipidemia (Acute) Osteoporosis (Acute) Degenerative disc disease, cervical (Acute) Menopause (Acute) Past Medical History Medical History Dyslipidemia Mixed dyslipidemia Osteoporosis Degenerative disc disease, cervical Menopause Family History Family History Father No problems noted. Mother No problems noted. Brother No problems noted. Brother No problems noted. Sister No problems noted. Sister No problems noted. Sister No problems noted. Son No problems noted. Daughter No problems noted. Maternal Grandmother Breast cancer Surgical History Surgical History Fracture of arm History of lumpectomy Social History Social History Housing: House Alcohol intake: current Alcohol intake frequency: holidays/special occasions only Patient Tobacco Use Status: Former Tobacco user Years Smoked: 10 yrs e-Cigarette/Vaping Use: Never Used Second Hand Smoke Exposure: No Are you DNR?: No Advance Directives: No Advance Directives Information Provided: Yes Nutrition Risks: No Nutritional Risk Current occupational status: retired Cognitive needs: No Hearing needs: No Vision needs: Yes Meds Allergies Allergy/AdvReac Type Severity Reaction Status Date / Time No Known Allergies Allergy Verified 09/29/23 01:16 Home Medications ?Medication ?Instructions ?Recorded ?Confirmed ?Last Taken ?Type sglhhagdshyu-zvrpfdbk-owizty tablet 1 tab PO DAILY 07/21/20 12/20/23 12/16/23 History Exam Height,Weight and Vital Signs: Height 5 ft 1 in Weight 43.091 kg Assessment and Plan Assessment Anesthesia Assessment: Chart Reviewed Documented by User: Cheyenne Hayes DO 12/20/23 11:20 HPI - Anesthesia Eval Consult details Narrative: 68yo F for Colonoscopy Patient was hypertensive in pre-op today because she was nervous. No hx of HTN. COUNT INCLUDES [facility] Past Medical History Medical History Dyslipidemia Mixed dyslipidemia Osteoporosis Degenerative disc disease, cervical Menopause Family History Family History Father No problems noted. Mother No problems noted. Brother No problems noted. Brother No problems noted. Sister No problems noted. Sister No problems noted. Sister No problems noted. Son No problems noted. Daughter No problems noted. Maternal Grandmother Breast cancer Family history of problems with anesthesia: No Surgical History Surgical History Fracture of arm History of lumpectomy History of Problems with Anesthesia: No Social History Social History Housing: House Alcohol intake: current Alcohol intake frequency: holidays/special occasions only Patient Tobacco Use Status: Former Tobacco user Years Smoked: 10 yrs e-Cigarette/Vaping Use: Never Used Second Hand Smoke Exposure: No Are you DNR?: No Advance Directives: No Advance Directives Information Provided: Yes Nutrition Risks: No Nutritional Risk Current occupational status: retired Cognitive needs: No Hearing needs: No Vision needs: Yes Meds Allergies Allergy/AdvReac Type Severity Reaction Status Date / Time No Known Allergies Allergy Verified 09/29/23 01:16 Home Medications ?Medication ?Instructions ?Recorded ?Confirmed ?Last Taken ?Type irvhzgkhidwc-egxzgkhr-fxvcxu tablet 1 tab PO DAILY 07/21/20 12/20/23 12/16/23 History Exam Exam Date and Time: December 20, 2023 1115 Height,Weight and Vital Signs: Vital Signs Temperature 97.2 F 12/20/23 11:07 Pulse Rate 93 12/20/23 11:07 Respiratory Rate 18 12/20/23 11:07 Blood Pressure 191/93 H 12/20/23 11:07 Pulse Oximetry 97 12/20/23 11:07 Oxygen Delivery Method Room Air 12/20/23 11:07 Temperature 97.2 F 12/20/23 11:07 Pulse Rate 93 12/20/23 11:07 Respiratory Rate 18 12/20/23 11:07 Blood Pressure 191/93 H 12/20/23 11:07 Pulse Oximetry 97 12/20/23 11:07 Oxygen Delivery Method Room Air 12/20/23 11:07 Height 5 ft 1 in Weight 43.091 kg Airway Mallampati Class: I TM Dist: >3cm Denture: Upper and Lower Heart: S1S2 Lungs: CTAB Assessment and Plan Assessment Anesthesia Assessment: Anesthesia Plan Discussed and Chart Reviewed Final Anesthetic Review Family History of Problems with Anesthesia: No History of Problems with Anesthesia: No NPO: Yes ASA Class: II Final Preanesthetic Review: No Changes in Pt Med Stat, Meds/Allgs Chart Reviewed, Consent Obtained/Reviewed and Anes Risks/Benef Reviewed Patient Risk: Low Procedure Risk: Low Anesthetic Plan Anesthetic Plan: MAC: and Agree w/ Assess. and Plan Disposition: Standard PACU
[2023-12-20 11:17] VITALS: BP 167/95
[2023-12-20] MEDS: Lactated Ringers 1,000 ML 100 ML IVCONT (11:24)
--- NOTE | 2023-12-20 11:38 | P.OP_ITS ---
Operative Note Operative Note Date of Service: 12/20/23 Narrative: Procedure: Colonoscopy Indication: Screening Endoscopist: Vianca Stout MD and Venkatesh Gunderson MD Anesthesia Provider: Rena Renteria CRNA Anesthesia type: MAC Instrument: Olympus [id number] and [id number] Consent: Indication, risks vs benefits, and alternatives were discussed with the patient who gave written informed consent to proceed. EKG, pulse, pulse oximetry and blood pressure were monitored throughout the procedure. Please see anesthesia flowsheet. Procedure: The patient was brought to the procedure room and placed in the left lateral decubitus position. IV medications were administered by the anesthesia provider in attendance. A digital rectal exam was performed which was abnormal due to finding of hemorrhoids. A distal attachment cap was affixed to the tip of the pediatric colonoscope and the scope was then inserted through the anus and advanced through the colon to the proximal sigmoid colon. Due to severely fixed and loopy sigmoid colon, the scope could not be advanced despite pressure and repositioning. The scope was then switched out to adult scope and we were still not able to progress. Dr Gunderson was therefore requested to step in the room to assist. The scope was eventually advanced through the colon and cecum was reached. Ileocecal valve and appendiceal orifice were identified. Mucosa was carefully examined under high definition white light as the instrument was slowly withdrawn in a retrograde panoramic fashion. Retroflexion was performed in rectum. The procedure was difficult. There were no immediate obvious complications. The quality of the prep was BBPS: 3+2+3 = adequate Withdrawal time 8 minutes. Limitations: No limitations. Findings: Mucosa: Normal to cecum and terminal ileum. Protruding lesions: * Medium internal hemorrhoids without stigmata of recent bleeding. Excavated lesions: * Severe diverticulosis of whole colon Impression: 1. Normal colon mucosa 2. Severe diverticulosis 3. External and internal hemorrhoids Recommendations: - repeat colonoscopy in 10 years for asymptomatic colorectal cancer screening - for future colo, consider using an adult scope to start with, and advancing through the sigmoid colon with LLQ lift
[2023-12-20 12:36] VITALS: BP 124/68; PULSE 76; RESP 18; TEMP 36.3; O2SAT 99
[2023-12-20 12:51] VITALS: BP 110/56; PULSE 57; RESP 18; TEMP 36.1; O2SAT 99
== END 2023-12-20 13:35 | disposition home or self-care (01) ==
PROVIDERS: PCP Internal Medicine; Visit Provider Internal Medicine
PROC: 0DJD8ZZ Inspection of Lower Intestinal Tract, Via Natural or Artificial Opening Endoscopic (ICD-10-PCS; CPT 45378; principal; 2023-12-20 12:10)
DX: Z12.11 Encounter for screening for malignant neoplasm of colon (principal); K57.30 Diverticulosis of large intestine without perforation or abscess without bleeding; K64.8 Other hemorrhoids; K64.4 Residual hemorrhoidal skin tags; E78.2 Mixed hyperlipidemia; M81.0 Age-related osteoporosis without current pathological fracture; R74.8 Abnormal levels of other serum enzymes; Z79.899 Other long term (current) drug therapy; Z87.891 Personal history of nicotine dependence
CPT/HCPCS: G0121; J2704

== ENCOUNTER → 2023-12-20 10:52 | Outpatient (BNV) | payer MEDICARE, SELFPAY | PROVIDERS: PCP Internal Medicine; Visit Provider Internal Medicine | DX: Z12.11 Encounter for screening for malignant neoplasm of colon (principal); K57.90 Diverticulosis of intestine, part unspecified, without perforation or abscess without bleeding; K64.8 Other hemorrhoids | CPT/HCPCS: G0121 ==

== ENCOUNTER 2024-01-23 07:57 | Outpatient (REF) | payer MEDICARE, SELFPAY ==
--- NOTE | ~2024-01-23 | MM_ITS ---
EXAMINATION: MM SCREENING DIGITAL BREAST TOMOSYNTHESIS, BILATERAL CLINICAL INFORMATION: Screening. Asymptomatic. COMPARISON: Mammography: This study is compared with prior exams dating back to 2015. TECHNIQUE: Digital breast tomosynthesis is performed in both the craniocaudal and mediolateral oblique views along with computer-aided detection (CAD). Synthesized 2D images are generated from the tomosynthesis. FINDINGS: There are scattered areas of fibroglandular density (ACR BI-RADS breast composition Category b). There are no significant masses, abnormal calcifications, or other abnormalities. MM/MM tomosynthesis screening BI IMPRESSION: No mammographic evidence of malignancy. ASSESSMENT: BI-RADS BI-RADS 1 - Negative RECOMMENDATION: Routine annual mammography screening. 1 year F/U This examination should not preclude the clinical evaluation of a suspicious palpable abnormality. This patient's information was entered into a reminder system with a target due date for their next mammogram.
--- NOTE | ~2024-01-23 | MM_ITS ---
EXAMINATION: BONE DENSITOMETRY CLINICAL INDICATION: Age-related osteoporosis without current pathological fracture. COMPARISON: Baseline BD dated 09/21/2020. TECHNIQUE: Using a mygall DXA System (software version: 13.1) manufactured by [employer], dual-energy x-ray absorptiometry was performed of the lumbar spine and left hip. The images are of good technical quality. Summary results are attached. FINDINGS: LEFT FEMUR, NECK: Current: BMD 0.449 g/cm2, Z-score -2.1, T-score -4.2, osteoporosis. Baseline: BMD 0.581 g/cm2. LEFT FEMUR, TOTAL: Current: BMD 0.471 g/cm2, Z-score -2.3, T-score -4.3, osteoporosis, 22.0% decrease from baseline (<5% change is not significant). Baseline: BMD 0.604 g/cm2. AP SPINE L1-L4: Current: BMD 1.092 g/cm2, Z-score 1.7, T-score -0.7, normal, 8.2% increase from baseline (<5% change is not significant). Baseline: BMD 1.009 g/cm2. IDENTIFIED RISK FACTORS: Menopause, history of fracture (adult). HISTORY OF FRACTURE: Humerus. MEDICATIONS: Multivitamin. MM/XR DEXA axial skeleton IMPRESSION: 1. DIAGNOSIS: Severe osteoporosis based on the lowest T-score value of -4.3 in the total femur and history of fracture applying World Health Organization criteria. 2. 10-YEAR FRACTURE RISK PREDICTION, FRAX: According to the guidelines, FRAX calculation should only be performed on patients in the osteopenia bone density category. Therefore, FRAX was not performed on this patient. 3. Treatment Recommendations: NOF guidelines recommend consideration for treatment in postmenopausal women and men age 50 and older presenting with the following: -A hip or vertebral (clinical or morphometric) fracture. -T-score less than or equal to -2.5 at the femoral neck or spine after appropriate evaluation to exclude secondary causes. -Low bone mass at the hip or spine and a 10-year fracture probability by FRAX of greater than or equal to 3% for hip fracture or greater than or equal to 20% for major osteoporotic fracture based on the [place] adapted WHO algorithm. 4. Other Recommendations: All treatment decisions require clinical judgment and consideration of individual patient factors, including patient preferences, comorbidities, previous drug use, risk factors not captured in the FRAX model (e.g. frailty, falls, vitamin D deficiency, increased bone turnover, interval significant decline in bone density) and possible under or overestimation of fracture risk by FRAX. Additional medical evaluation for secondary cause of low bone mineral density may be appropriate. FUTURE SCAN RECOMMENDATION: People with diagnosed cases of osteoporosis or at high risk for fracture should have regular bone mineral density tests. For patients eligible for Medicare, routine testing is allowed once every 2 years. The testing frequency can be increased to one year for patients who have rapidly progressing disease, those who are receiving or discontinuing medical therapy to restore bone mass, or have additional risk factors.
== END 2024-01-23 07:58 | disposition home or self-care (01) ==
LOC: HO.MAMMO 07:57
PROVIDERS: PCP Internal Medicine; Visit Provider Internal Medicine Endocrinology, Diabetes & Metabolism
DX: Z12.31 Encounter for screening mammogram for malignant neoplasm of breast (principal); Z13.820 Encounter for screening for osteoporosis; M81.0 Age-related osteoporosis without current pathological fracture; Z78.0 Asymptomatic menopausal state
CPT/HCPCS: 77063; 77067; 77080

== ENCOUNTER → 2024-01-23 08:45 | Outpatient (BNV) | payer MEDICARE, SELFPAY | PROVIDERS: PCP Internal Medicine; Visit Provider Radiology Diagnostic Radiology | DX: Z12.31 Encounter for screening mammogram for malignant neoplasm of breast (principal) | CPT/HCPCS: 77063; 77067 ==

== ENCOUNTER 2024-01-28 07:50 | Outpatient (AMB) | payer MEDICARE, SELFPAY ==
--- NOTE | 2024-01-28 07:51 | A.OFFVIS_ITS ---
Vital Signs 01/28/24 07:52 Height 5 ft 1 in Weight 96 lb 5.472 oz BMI 18.2 BP 156/70 H Blood Pressure Location Lt brachial Position Sitting Pulse 97 Pulse Source Pulse Oximeter Intake Visit Reasons: Osteoporosis/CONFIRMED Intake Note: Patient presents today for Osteoporosis follow up. 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 First diagnosed in last yr . Not Received treatment in the past No history of pathologic fracture or ONJ. Has several servings of dietary calcium per day in the form of cheese, yogurt . Not Takes Calcium supplement doses. Takes ? IU of Vitamin D daily. Denies ever using PPI, anticoagulant, antiepileptic or glucocorticoid medication. 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 UTD on dental cleanings and sees dentist every 6 months. No planned upcoming dental work or extractions. DXA dated 04/10/21 :FINDINGS: AP SPINE L1-L4: BMD 1.009 g/cm2, Z-score 1.0, T-score -1.4, osteopenia. LEFT FEMUR, NECK: BMD 0.581 g/cm2, Z-score -1.3, T-score -3.3, osteoporosis. LEFT FEMUR, TOTAL: BMD 0.604 g/cm2, Z-score -1.4, T-score -3.2, osteoporosis. IDENTIFIED RISK FACTORS: Menopausal. HISTORY OF FRACTURE: Humerus. MEDICATIONS: Calcium supplements or multivitamin. MM/XR DEXA axial skeleton IMPRESSION: 1. DIAGNOSIS: Osteoporosis based on the lowest T-score value of -3.3 in the femoral neck applying World Health Organization criteria.? ? Labs: Taking calcium and Vitamin D . No fx since last visit [facility] Medical History Dyslipidemia Mixed dyslipidemia Osteoporosis Degenerative disc disease, cervical Menopause Surgical History Hx of colonoscopy Fracture of arm History of lumpectomy Family History Father No problems noted. Mother No problems noted. Brother No problems noted. Brother No problems noted. Sister No problems noted. Sister No problems noted. Sister No problems noted. Son No problems noted. Daughter No problems noted. Maternal Grandmother Breast cancer Social History Housing: House Alcohol intake: current Alcohol intake frequency: holidays/special occasions only Patient Tobacco Use Status: Former Tobacco user Years Smoked: 10 yrs e-Cigarette/Vaping Use: Never Used Second Hand Smoke Exposure: No Current occupational status: retired Cognitive needs: No Hearing needs: No Vision needs: Yes Physical Exam Vital Signs: Last Vital Signs Pulse 97 01/28/24 07:52 BP 156/70 H 01/28/24 07:52 BMI result Body Mass Index 18.2 Assessment & Plan Assessment & Plan (1) Osteoporosis: Code(s): M81.0 - Age-related osteoporosis without current pathological fracture Category: Medical Qualifiers: Osteoporosis type: age-related Presence of current pathological fracture: without current pathological fracture Qualified Code(s): M81.0 - Age- related osteoporosis without current pathological fracture Plan: This is a 69-year-old white female with a history of osteoporosis. Secondary workup was negative. Was prescribed alendronate last visit and is currently on 70 units per week The plan is to continue the current therapy. We did talk about anabolic therapy that is potential benefit over anti resorptive therapy but the patient is wanting to stay on the alendronate at this point. We will check urinary NTX. Orders: Orders Collagen Crosslinks NTX Today M81.0 - Age-related osteoporosis without current pathological fracture Medications: New alendronate 70 mg PO QWEEK 7 tabs 5RF Coding Level of Care Code Est Pt Level 3 (07578) Diagnoses Age-related osteoporosis without current pathological fracture M81.0 Osteoporosis type: age-related Presence of current pathological fracture: without current pathological fracture
[2024-01-28 07:52] VITALS: BP 156/70; PULSE 97; BMI 18.2
== END 2024-01-28 08:12 | disposition home or self-care (01) ==
PROVIDERS: PCP Internal Medicine; Visit Provider Internal Medicine Endocrinology, Diabetes & Metabolism
DX: M81.0 Age-related osteoporosis without current pathological fracture (principal)
CPT/HCPCS: 99213

== ENCOUNTER → 2024-01-28 07:50 | Outpatient (BNVA) | payer MEDICARE, SELFPAY | PROVIDERS: PCP Internal Medicine; Visit Provider Internal Medicine Endocrinology, Diabetes & Metabolism | DX: M81.0 Age-related osteoporosis without current pathological fracture (principal) | CPT/HCPCS: 99212 ==

== ENCOUNTER 2024-08-04 07:22 | Outpatient (REF) | payer MEDICARE, SELFPAY ==
[2024-08-09 07:29] LABS: N-Telopeptide 24 (see note); NTXCreaRU 221 mg/dL (20-275)
== END 2024-08-04 07:23 | disposition home or self-care (01) ==
LOC: HO.HMGCLDS 07:22
PROVIDERS: PCP Internal Medicine; Visit Provider Internal Medicine Endocrinology, Diabetes & Metabolism
DX: M81.0 Age-related osteoporosis without current pathological fracture (principal)
CPT/HCPCS: 82523

== ENCOUNTER 2024-08-11 08:12 | Outpatient (AMB) | payer MEDICARE, SELFPAY ==
--- NOTE | 2024-08-11 08:18 | MHC.OFFVIS ---
Vital Signs 08/11/24 08:21 Height 5 ft 1.99 in Weight 98 lb 8.746 oz BMI 18.0 BP 150/72 H Blood Pressure Location Lt brachial Position Sitting Pulse 91 Pulse Source Pulse Oximeter Intake Visit Reasons: Osteoporosis Intake Note: Patient present today for Osteoporosis follow up. 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 First diagnosed in last yr . Not Received treatment in the past No history of pathologic fracture or ONJ. Has several servings of dietary calcium per day in the form of cheese, yogurt . Not Takes Calcium supplement doses. Takes ? IU of Vitamin D daily. Denies ever using PPI, anticoagulant, antiepileptic or glucocorticoid medication. 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 UTD on dental cleanings and sees dentist every 6 months. No planned upcoming dental work or extractions. DXA dated 04/10/21 :FINDINGS: AP SPINE L1-L4: BMD 1.009 g/cm2, Z-score 1.0, T-score -1.4, osteopenia. LEFT FEMUR, NECK: BMD 0.581 g/cm2, Z-score -1.3, T-score -3.3, osteoporosis. LEFT FEMUR, TOTAL: BMD 0.604 g/cm2, Z-score -1.4, T-score -3.2, osteoporosis. IDENTIFIED RISK FACTORS: Menopausal. HISTORY OF FRACTURE: Humerus. MEDICATIONS: Calcium supplements or multivitamin. MM/XR DEXA axial skeleton IMPRESSION: 1. DIAGNOSIS: Osteoporosis based on the lowest T-score value of -3.3 in the femoral neck applying World Health Organization criteria.? ? Labs: Taking calcium and Vitamin D . No fx since last visit . Recent DEXA bone density shows significant decreases in the left femur. Bone turnover markers suppressed [facility] Medical History Dyslipidemia Mixed dyslipidemia Osteoporosis Degenerative disc disease, cervical Menopause Surgical History Hx of colonoscopy Fracture of arm History of lumpectomy Family History Father No problems noted. Mother No problems noted. Brother No problems noted. Brother No problems noted. Sister No problems noted. Sister No problems noted. Sister No problems noted. Son No problems noted. Daughter No problems noted. Maternal Grandmother Breast cancer Social History Housing: House Alcohol intake: current Alcohol intake frequency: holidays/special occasions only Patient Tobacco Use Status: Former Tobacco user Years Smoked: 10 yrs e-Cigarette/Vaping Use: Never Used Second Hand Smoke Exposure: No Current occupational status: retired Cognitive needs: No Hearing needs: No Vision needs: Yes Assessment & Plan Assessment & Plan (1) Osteoporosis: Code(s): M81.0 - Age-related osteoporosis without current pathological fracture Category: Medical Qualifiers: Osteoporosis type: age-related Presence of current pathological fracture: without current pathological fracture Qualified Code(s): M81.0 - Age-related osteoporosis without current pathological fracture Plan: This is a 69-year-old white female with a history of osteoporosis. Secondary workup was negative. Was prescribed alendronate last visit and is currently on 70 mg per week. Recent DEXA her significant decreases in the left femoral neck. Urine NTX is suppressed suggest that patient is compliant with alendronate The plan is to talk about anabolic therapy that is potential benefit over anti resorptive therapy and then go back to anti resorptive therapy with bisphosphonate. We agreed to go with Evenity and will try to transition her over the next couple of months. She will hold the alendronate for now Orders: Orders Vitamin D 25-OH Total Today M81.0 - Age-related osteoporosis without current pathological fracture Calcium Today M81.0 - Age-related osteoporosis without current pathological fracture Albumin Level Today M81.0 - Age-related osteoporosis without current pathological fracture Medications: Discontinued alendronate Discontinued Reason: Doctor's Order 70 mg PO QWEEK 7 tabs 5RF Coding Level of Care Code Est Pt Level 3 (83730) Diagnoses Age-related osteoporosis without current pathological fracture M81.0 Osteoporosis type: age-related Presence of current pathological fracture: without current pathological fracture
[2024-08-11 08:21] VITALS: BP 150/72; PULSE 91; BMI 18.0
== END 2024-08-11 08:47 | disposition home or self-care (01) ==
PROVIDERS: PCP Internal Medicine; Visit Provider Internal Medicine Endocrinology, Diabetes & Metabolism
DX: M81.0 Age-related osteoporosis without current pathological fracture (principal)
CPT/HCPCS: 99213

== ENCOUNTER → 2024-08-11 08:12 | Outpatient (BNVA) | payer MEDICARE, SELFPAY | PROVIDERS: PCP Internal Medicine; Visit Provider Internal Medicine Endocrinology, Diabetes & Metabolism | DX: Z00.00 Encounter for general adult medical examination without abnormal findings (principal); M81.0 Age-related osteoporosis without current pathological fracture; E78.2 Mixed hyperlipidemia; Z78.0 Asymptomatic menopausal state; Z71.89 Other specified counseling; Z79.83 Long term (current) use of bisphosphonates | CPT/HCPCS: 96127; 99212 ==

== ENCOUNTER 2024-08-11 09:03 | Outpatient (AMB) | payer MEDICARE, SELFPAY ==
[2024-08-11 09:41] VITALS: BP 140/66; PULSE 81; O2SAT 98; BMI 17.9
--- NOTE | 2024-08-11 09:41 | A.OFFVIS_ITS ---
Intake Vital Signs 08/11/24 09:41 Height 5 ft 1 in Weight 95 lb BMI 17.9 BP 140/66 H Blood Pressure Location Lt brachial Position Sitting Pulse 81 Pulse Source Pulse Oximeter Pulse Oximetry (%) 98 Oxygen Delivery Method Room Air Intake Visit Reasons: AWV G0438 Intake Note: Pt is here today for her AWV: Last mammogram 01/23/24, bone density scan 01/23/24, colonoscopy 12/20/23 Allergies No Known Allergies Allergy (Verified 08/11/24 09:51) Medication List - Last Reconciled 08/11/24 by Saira Crooks MD [id number] 1 tab PO DAILY romosozumab-aqqg (Evenity) 210 mg (2.34 mL) subcut .monthly rosuvastatin 5 mg PO 2XW HPI AWV G0438 HPI Details SWV ? 68 year old lady with dyslipidemia, osteoporosis, degenerative disc disease in the cervical spine,mixed dyslipidemia, presents for her Annual Wellness Visit, subsequent visit.? She is up-to-date with her screening mammogram done 01/23/24 with negative findings , and had a bone density scan done at the same time which showed presence of osteoporosis in left femur and left femoral neck with normal bone density in AP spine currently followed by Dr. Benson, who stopped Al endronate and planning to start her on Evenity. She no longer gets her cervical cancer screening. She is UTD with her screening colonoscopy, done by Dr Stout 12/20/23 , which showed severe diverticulosis and presence of both internal and external hemorrhoids . She had a fasting lipid panel done 07/31/2023 which showed presence of elevated triglycerides, normal LDL cholesterol, a and normal fasting blood sugar done 08/07/2022. She is up-to-date with her COVID vaccine bur has not yet had the latest booster, up-to-date with her pneumococcal vaccination,but has not had her her ye estefani flu shot or Shingrix vaccination. ? Medical / Social History Reviewed? Past Medical History ?Yes . ? Nikolai of Care / Care Team list updated ?Yes . ? Surgical/Hospitalization History ?Yes . ? Current Medications (including OTC and supplements) ?Yes . ? Family History ?Yes . ? Tobacco Control form ?Yes . ? AUDIT-C (Alcohol use) form ?Yes . ? Illicit drug use in Social History ?Yes . ? Current diagnosis of depression? ?No ? Appropriate PHQ2/PHQ9 completed ?Yes . ? Data entered by ?Sports Announcer and reviewed by provider ? Fall Risk ? Fall History? Have you had any falls with injury in the past year? ?No . ? Have you had two or more falls in the past year? ?No . ? Fall Risk Assessment: ?No falls in the past year . ? HRA filled out by the patient, reviewed by Provider and scanned. ? SWV ? Balance? Romberg ?Yes . ? Tandem walk ?Yes . ? Walk and Turn ?Yes . ? Rise from sit to stand ?Yes . ?Vision? Corrective lens ?Yes ? Vision screen ? Up-to-date, sees Dr Goddard ?Hearing? Whisper test ?pass ?Written Plan?Completed. See Patient Documents.? [facility] Medical History (Updated 08/11/24 @ 10:19 by Saira Crooks MD) Mixed dyslipidemia Osteoporosis Degenerative disc disease, cervical Menopause Surgical History Hx of colonoscopy Fracture of arm History of lumpectomy Family History Father No problems noted. Mother No problems noted. Brother No problems noted. Brother No problems noted. Sister No problems noted. Sister No problems noted. Sister No problems noted. Son No problems noted. Daughter No problems noted. Maternal Grandmother Breast cancer Social History Housing: House Alcohol intake: current Alcohol intake frequency: holidays/special occasions only Patient Tobacco Use Status: Former Tobacco user Years Smoked: 10 yrs e-Cigarette/Vaping Use: Never Used Second Hand Smoke Exposure: No Current occupational status: retired Cognitive needs: No Hearing needs: No Vision needs: Yes Questionnaire Medicare Wellness Checkup [age] What gender do you identify with?: female During the past 4 weeks, how much have you been bothered by emotional problems such as feeling anxious, depressed, irritable, sad or downhearted, and blue?: not at all During the past 4 weeks, has your physical & emotional health limited your social activities with family, friends, neighbors, or groups?: not at all During the past 4 weeks, how much bodily pain have you generally had?: no pain During the past 4 weeks, was someone available to help you if you needed & wanted help?: yes, as much as I wanted During the past 4 weeks, what was the hardest physical activity you could do for at least 2 minutes?: heavy Can you get to places out of walking distance without help? (For eg., can you travel alone on buses, taxis or drive your car?): Yes Can you go shopping for groceries or clothes without someone's help?: Yes Can you prepare your own meals?: Yes Can you do your housework without help?: Yes Because of any health problems, do you need the help of another person with your personal care needs such as eating, bathing, dressing or getting around the house?: No Can you handle your own money without help?: Yes During the past 4 weeks, how would you rate your health in general?: very good During the past 4 weeks how have things been going for you?: very well; could hardly better Are you having difficulties driving your car?: no Do you always fasten your seat belt when you are in a car?: yes, usually During past 4 weeks, have you been bothered by the following: never: Falling or dizzy when standing up, Sexual problems?, Trouble eating well?, Teeth or denture problems?, Problems using the telephone? and Tiredness or fatigue? Have you fallen 2 or more times in the past year?: No Are you afraid of falling?: No Are you a smoker?: no During the past 4 weeks, how many drinks of wine, beer, or other alcoholic beverages did you have?: 2-5 drinks per week Do you exercise for about 20 minutes 3 or more times a week?: yes, most of the time Have you been given information to help with the following?: no: Hazards in your house that might hurt you? and no: Keeping track of your medications? How often do you have trouble taking medicines the way you have been told to take them?: I always take medicine as prescribed How confident are you that you can control & manage most of your health problems?: very confident What is your race?: White Mini Mental State Exam (MMSE) Orientation What is the (year) (season) (date) (day) (month)?: year (2023), season (Fall), date (08/11/2024), day (Sunday) and month (August) Where are we (state) (county) (town or city) (hospital) (floor)?: state ([facility]), [facility] ([place]), town or city ([place]) and hospital/clinic ([facility]) Score Score: 9 Activity of Daily Living Bathing - sponge bath, tub bath or shower: receives no assistance (gets in/out by self, if usual bathing means Dressing - getting clothes from closets & drawers, including inner/outer garments & fasteners.: gets clothes & gets completely dressed without help Toileting - going to the 'toilet room' for urine/bowel elimination & cleaning self/arranging clothes: goes to toilet room, cleans self, arranges clothes without help Transfer: moves in & out of bed and chair without help (may use support object) Continence: controls urination/bowel movements completely by self Feeding: feeds self without help Total Score: 0 Information obtained from: patient Using telephone: independent Traveling: independent Shopping: independent Preparing meals: independent Housework: independent Taking medicine: independent Managing money: independent PHQ-9 Over the last 2 weeks, how often have you been bothered by any of the following problems? 1. Little interest or pleasure in doing things: not at all 2. Feeling down, depressed, or hopeless: not at all 3. Trouble falling or staying asleep, or sleeping too much: not at all 4. Feeling tired or having little energy: not at all 5. Poor appetite or overeating: not at all 6. Feeling bad about yourself - or that you are a failure or have let yourself or your family down: not at all 7. Trouble concentrating on things, such as reading the newspaper or watching television: not at all 8. Moving or speaking so slowly that other people could have noticed. Or the opposite - being so fidgety or restless that you have been moving around a lot more than usual: not at all 9. Thoughts that you would be better off or of hurting yourself in some way: not at all Total score: 0 Depression Screening Interpretation: Negative Depression Screening Done: Yes 03798 - PHQ-9 Billing: Yes Source: Developed by Drs. Bossman Glez, May Walker, Dmitri Matthews and colleagues, with an educational sonja from [employer]. Physical Exam Vital Signs: Last Vital Signs Pulse 81 08/11/24 09:41 BP 140/66 H 08/11/24 09:41 Pulse Ox 98 08/11/24 09:41 Oxygen Delivery Method Room Air 08/11/24 09:41 BMI result Body Mass Index 17.9 Assessment & Plan Assessment & Plan (1) Encounter for subsequent annual wellness visit (AWV) in Medicare patient: Code(s): Z00.00 - Encounter for general adult medical examination without abnormal findings Plan: Medical wellness checklist reviewed, discussed with patient and updated. Advised to get routine vaccinations completed (2) Osteoporosis: Code(s): M81.0 - Age-related osteoporosis without current pathological fracture Qualifiers: Osteoporosis type: age-related Presence of current pathological fracture: without current pathological fracture Qualified Code(s): M81.0 - Age- related osteoporosis without current pathological fracture Plan: Followed by Dr. Benson, to be started on Evenity (3) Mixed dyslipidemia: Code(s): E78.2 - Mixed hyperlipidemia Plan: Continue with Rosuvastatin 5 mg per tablet taken twice a week (4) Advanced directives, counseling/discussion: Code(s): Z71.89 - Other specified counseling Plan: Initiated the conversation about Advanced Directives. Advanced Directives help patients prepare for current and future decisions about their medical treatment and place of care. Discussed with patient that it is a process where a patients current condition and prognosis are reviewed, their wishes for information regarding their illness are elicited, and likely medical dilemmas are presented and options discussed. Health Care proxy form completed today. The form can be amended as needed, reviewed yearly and make changes as needed Quality Reporting (2019) Depression/Bipolar (159/160/161/177) PHQ-9: Total score: 0 Coding Level of Care Code Medicare Subsequent (G0439) Diagnoses Encounter for subsequent annual wellness visit (AWV) in Medicare patient Z00.00 Age-related osteoporosis without current pathological fracture M81.0 Osteoporosis type: age-related Presence of current pathological fracture: without current pathological fracture Mixed dyslipidemia E78.2 Advanced directives, counseling/discussion Z71.89 CPT Codes Advance Care Planning - Time spent: 16-45 minutes ([id number]) Additional Codes PHQ-9 - 48688 - PHQ-9 Billing: Yes ([id number]) Advance Care Planning Advance Care Planning discussion: Completed/Scanned Date of discussion: 08/11/24 Who was present: patient Time spent: 16-45 minutes Actual minutes spent: 2
== END 2024-08-11 10:47 | disposition home or self-care (01) ==
PROVIDERS: PCP Internal Medicine; Visit Provider Internal Medicine
DX: Z00.00 Encounter for general adult medical examination without abnormal findings (principal); M81.0 Age-related osteoporosis without current pathological fracture; E78.2 Mixed hyperlipidemia; Z71.89 Other specified counseling

== ENCOUNTER 2024-08-18 11:03 | Outpatient (REF) | payer MEDICARE, SELFPAY ==
[2024-08-18 13:56] LABS: Calcium 9.4 mg/dL (8.4-10.2)
== END 2024-08-18 11:04 | disposition home or self-care (01) ==
LOC: HO.HMGCLDS 11:03
PROVIDERS: PCP Internal Medicine; Visit Provider Internal Medicine Endocrinology, Diabetes & Metabolism
DX: M81.0 Age-related osteoporosis without current pathological fracture (principal)
CPT/HCPCS: 36415; 82310

== ENCOUNTER 2024-10-06 08:05 | Outpatient (REF) | payer MEDICARE, SELFPAY ==
[2024-10-06 11:02] LABS: Alanine Aminotransferase 27 U/L (0-31); Anion Gap 11 (12-20); Aspartate Amino Transferase 40 U/L (5-31); Blood Urea Nitrogen 10 mg/dL (9-16); Calcium 9.1 mg/dL (8.4-10.2); Carbon Dioxide 27 mmol/L (22-29); Chloride 110 mmol/L (96-108); Cholesterol 217 mg/dL (<200); Estimated Glomerular Filt Rate > 60; Glucose Fasting 81 mg/dL (60-99); HDL Cholesterol 83 mg/dL (>40); LDL Cholesterol Calculated 101 mg/dL (<100); Potassium 3.9 mmol/L (3.3-5.1); Sodium 144 mmol/L (135-145); Triglycerides 168 mg/dL (<150)
== END 2024-10-06 08:06 | disposition home or self-care (01) ==
LOC: HO.HMGCLDS 08:05
PROVIDERS: PCP Internal Medicine; Visit Provider Internal Medicine
DX: R74.8 Abnormal levels of other serum enzymes (principal); E78.5 Hyperlipidemia, unspecified; Z78.0 Asymptomatic menopausal state; Z13.1 Encounter for screening for diabetes mellitus
CPT/HCPCS: 36415; 80048; 80061; 82550; 84450; 84460

== ENCOUNTER 2024-10-09 09:42 | Outpatient (AMB) | payer MEDICARE, SELFPAY ==
[2024-10-09 10:23] VITALS: BP 148/70; PULSE 78; RESP 14; TEMP 36.6; O2SAT 98; BMI 18.0
--- NOTE | 2024-10-09 10:23 | A.OFFPC_ITS ---
Vital Signs 10/09/24 10:23 Height 5 ft 1 in Weight 95 lb 8 oz BMI 18.0 BP 148/70 H Blood Pressure Location Lt brachial Position Sitting Respiration 14 Pulse 78 Pulse Source Pulse Oximeter Temp 97.9 F Temp Source Oral Pulse Oximetry (%) 98 Oxygen Delivery Method Room Air Intake Visit Reasons: PE Intake Note: Pt is here today for her PE Allergies No Known Allergies Allergy (Verified 10/09/24 10:35) Medication List - Last Reconciled 10/09/24 by Saira Crooks MD [id number] 1 tab PO DAILY romosozumab-aqqg (Evenity) 210 mg (2.34 mL) subcut .monthly rosuvastatin 5 mg PO 2XW Tobacco use date assessed: 10/09/24 Fall risk assessment: No Falls in past year Last assessed Fall Risk: 10/09/24 Dental Screening Dental Screen Date: 10/09/24 Did you have a dental visit in the last 12 months?: No Did you have a dental problem in the last 6 months where you did not have access to dental care?: No Was dental information given to patient?: Patient has dentist HPI PE HPI Details 69-year-old lady with history of osteopo rosis, hyperlipidemia, here today for physical exam. Currently followed by Dr. Benson for her osteoporosis and previously on alendronate and switched to Evenity. No history of fractures Takes rosuvastatin 5 mg twice a week, with latest fasting lipids within normal limit She is due for her screening mammogram again in 01/27/2025 and is up-to-date with her screening colonoscopy. [facility] Medical History Mixed dyslipidemia Osteoporosis Degenerative disc disease, cervical Menopause Surgical History Hx of colonoscopy Fracture of arm History of lumpectomy Family History Father No problems noted. Mother No problems noted. Brother No problems noted. Brother No problems noted. Sister No problems noted. Sister No problems noted. Sister No problems noted. Son No problems noted. Daughter No problems noted. Maternal Grandmother Breast cancer Social History Housing: House Alcohol intake: current Alcohol intake frequency: holidays/special occasions only Patient Tobacco Use Status: Former Tobacco user Years Smoked: 10 yrs e-Cigarette/Vaping Use: Never Used Second Hand Smoke Exposure: No Current occupational status: retired Cognitive needs: No Hearing needs: No Vision needs: Yes Questionnaire PHQ-9 Over the last 2 weeks, how often have you been bothered by any of the following problems? 1. Little interest or pleasure in doing things: not at all 2. Feeling down, depressed, or hopeless: not at all 3. Trouble falling or staying asleep, or sleeping too much: not at all 4. Feeling tired or having little energy: not at all 5. Poor appetite or overeating: not at all 6. Feeling bad about yourself - or that you are a failure or have let yourself or your family down: not at all 7. Trouble concentrating on things, such as reading the newspaper or watching television: not at all 8. Moving or speaking so slowly that other people could have noticed. Or the opposite - being so fidgety or restless that you have been moving around a lot more than usual: not at all 9. Thoughts that you would be better off or of hurting yourself in some way: not at all Total score: 0 Depression Screening Interpretation: Negative Depression Screening Done: Yes 70154 - PHQ-9 Billing: Yes Source: Developed by Drs. Bossman Glez, May Walker, Dmitri Matthews and colleagues, with an educational sonja from [employer]. Thrive Questionnaire Date Thrive assessed: 10/09/24 I am a: Patient What is your living situation today?: I have a steady place to live Within the past 12 months, did the food you bought not last and you didn't have the money to get more?: Never true Within the past 12 months, did you worry whether your food would run out before you got money to buy more?: Never true Do you have trouble paying for medicines?: No Do you have trouble getting transportation to medical appointments?: No Do you have trouble paying your heating and electricity bill?: No Do you have trouble taking care of your child, family member or friend?: I choose not to answer this question Do you have trouble with day-to-day activities such as bathing, preparing meals, shopping, managing finances, etc.?: No Are you currently unemployed and looking for a job?: I choose not to answer this question Are you interested in more education?: No Please select the resources that you would like help with: None Currently or been in a relationship where the following occur: No concerns reported THRIVE Score: 0 AUDIT C Alcohol Use Questionnaire (AUDIT-C) 1. How often do you have a drink containing alcohol?: 2-3 times a week 2. How many drinks containing alcohol do you have on a typical day when you are drinking?: 3 or 4 3. How often do you have six or more drinks on one occasion?: Never Total Score: 4 MIKHAIL-7 AMB Questionnaire MIKHAIL-7 Date MIKHAIL - 7 assessed: 10/09/24 Feeling nervous, anxious, or on edge: 0 = Not at all Not being able to stop or control worryin = Not at all Worrying too much about different things: 0 = Not at all Trouble relaxin = Not at all Being so restless that it is hard to sit still: 0 = Not at all Becoming easily annoyed or irritable: 0 = Not at all Feeling afraid as if something awful might happen: 0 = Not at all Total MIKHAIL-7 score (0-4 normal; 5-9 mild; 10-14 moderate; 15-21 severe): 0 Source: Developed by Drs. Bossman Glez, May Walker, Dmitri Matthews and colleagues, with an educational sonja from [employer]. MIKHAIL-7 Assessment Billing MIKHAIL-7 Assessment Tool: MIKHAIL-7 Assessment 76371 Review of Systems Const Denies body aches, Denies fatigue, Denies headache(s) and Denies weakness Eyes Denies change in vision ENT Denies dizziness and Denies headache(s) Card Denies chest pain, Denies lightheadedness, Denies palpitations and Denies dyspnea Resp Denies cough and Denies dyspnea GI Denies abdominal pain, Denies change in bowel habits and Denies heartburn Musc Details: No history of fractures Reports no additional complaints Skin/Breast Denies breast pain, Denies breast mass and Denies rash Neuro Denies dizziness, Denies headache(s) and Denies weakness Psych Reports no additional complaints Endo Denies fatigue, Denies polydipsia, Denies polyuria and Denies palpitations Dakotah/Lymph Reports no additional complaints Physical exam (Primary Care) Vital Signs: Last Vital Signs Temp 97.9 F 10/09/24 10:23 Pulse 78 10/09/24 10:23 Resp 14 10/09/24 10:23 BP 148/70 H 10/09/24 10:23 Pulse Ox 98 10/09/24 10:23 Oxygen Delivery Method Room Air 10/09/24 10:23 BMI result Body Mass Index 18.0 Tobacco/Smoking Status: Tobacco use Status Tobacco use date assessed 10/09/24 10/09/24 10:29 Patient Tobacco Use Status Former Tobacco user 10/09/24 10:29 e-Cigarette/Vaping Use Never Used 10/09/24 10:29 PHQ-9: PHQ-9 Score PHQ-9: Total score 0 10/12/24 05:40 Depression Screening Interpretation: Negative Thrive Assessment: Date of Thrive Assessment Date Thrive assessed 10/09/24 10/09/24 10:29 Currently or been in a relationship where the following occur: No concerns reported Results Reviewed Results Reviewed: Name: Denise Steven Age/Sex: 69/F : 1955 Unit#: [id number] Attend Dr: Saira Crooks MD Re10/06/24 Status: DEP REF Location: [facility] Disch: SPEC : [id number] PAOLA: 10/06/24 STATUS: COMP REQ : [id number] RECD: 10/06/[address]: Saira Crooks MD COMP: 10/06/24-1101 ENTERED: 10/06/24-[address]: ORDERED: Met Prof Fast, AST, ALT, CK Total, Lipid Panel Test Result Flag Reference Sodium 144 135-145 mmol/L Potassium 3.9 3.3-5.1 mmol/L CL 110 H 96-108 mmol/L CO2 27 22-29 mmol/L Gap 11 L 12-20 BUN 10 9-16 mg/dL Creat 0.78 0.5-1.4 mg/dL eGFR > 60 Chronic Kidney Disease: Estimated GFR < 60 mL/min/1.73m2 Severe Kidney Disease: Estimated GFR < 15 mL/min/1.73m2 FBS 81 60-99 mg/dL CA 9.1 8.4-10.2 mg/dL AST (GOT) 40 H 5-31 U/L ALT (GPT) 27 0-31 U/L CK Total 76 26-140 U/L Triglyceride 168 H <150 mg/dL Desirable Triglyceride: less than 150 mg/dL Borderline High Triglyceride 150-199 mg/dL High Triglyceride: 200-499 mg/dL Very High Triglyceride: greater than or equal to 5OO mg/dL Cholesterol 217 H <200 mg/dL Desirable Cholesterol: less than 200 mg/dL Borderline High Cholesterol: 200-239 mg/dL High Cholesterol: greater than 239 mg/dL LDL Calculated 101 H <100 mg/dL Desirable LDL: less than 100 mg/dL Near Optimal/Above Optimal LDL: 110-129 mg/dL Borderline High LDL: 130-159 mg/dL High LDL: 160-189 mg/dL Very High LDL: greater than or equal to 190 mg/dL HDL 83 >40 mg/dL Desirable HDL: greater than 40 mg/dL Note: This HDL assay may give artificially low results in patients with liver disease. Coding Level of Care Code Est Pt Prev Care >65y(42935) Diagnoses Annual visit for general adult medical examination with abnormal findings Z00. Age-related osteoporosis without current pathological fracture M81.0 Osteoporosis type: age-related Presence of current pathological fracture: without current pathological fracture Mixed dyslipidemia E78.2 Elevated liver enzymes R74.8 Additional Codes MIKHAIL-7 Assessment Billing - MIKHAIL-7 Assessment Tool: MIKHAIL-7 Assessment 59833 ([id number]) PHQ-9 - 68558 - PHQ-9 Billing: Yes ([id number]) Assessment & Plan Assessment & Plan (1) Annual visit for general adult medical examination with abnormal findings: Code(s): Z00.01 - Encounter for general adult medical examination with abnormal findings Plan: Results of recent fasting labs discussed with patient.. Continued regular eye exams, at least every 2 years. Currently followed by endocrine clinic for her osteoporosis, advised to adequate calcium in diet and vitamin-D 3 at 2000 IU per cap once a day, in addition to weight-bearing exercises to help maintain good muscle tone and weight control. She is due for her repeat mammogram in 01/27/2025, in his up-to-date with her screening colonoscopy. She is up-to-date with her COVID booster does not want to get a flu shot but did get her Pneumovax 20 vaccine (2) Osteoporosis: Code(s): M81.0 - Age-related osteoporosis without current pathological fracture Category: Medical Qualifiers: Osteoporosis type: age-related Presence of current pathological fracture: without current pathological fracture Qualified Code(s): M81.0 - Age- related osteoporosis without current pathological fracture Plan: Currently followed by Dr. Benson at [facility] endocrine clinic, on Evenity infusion (3) Mixed dyslipidemia: Code(s): E78.2 - Mixed hyperlipidemia Category: Medical Plan: fasting lipid profile showed mild elevation in triglycerides with normal LDL cholesterol and total cholesterol levels. . Continue rosuvastatin 5 mg 1 tablet twice a week , in addition to adherence to low-cholesterol diet and regular exercise, at least 30 minutes 3 to 4 times a week. Advised patient to make healthy food choices, eat more fruits, vegetables, whole grains, wild caught fish and low-fat dairy. Limit amount of meat and fried or fatty food products, as well as processed foods and fast foods. (4) Elevated liver enzymes: Comment: Reviewing record reveals AST> ALT- etoh likely plays role- recheck, she has a follow-up with PCP they will be available for her review Code(s): R74.8 - Abnormal levels of other serum enzymes Category: Medical Plan: Repeat liver enzymes, advised to abstain from any alcohol intake Orders: Orders Lipid Panel 03/30/25 E78.2 - Mixed hyperlipidemia, M81.0 - Age-related osteoporosis without current pathological fracture, R74.8 - Abnormal levels of other serum enzymes, Z78.0 - Asymptomatic menopausal state Vitamin D 25-OH Total 03/30/25 E78.2 - Mixed hyperlipidemia, M81.0 - Age- related osteoporosis without current pathological fracture, R74.8 - Abnormal levels of other serum enzymes, Z78.0 - Asymptomatic menopausal state Alanine Aminotransferase 03/30/25 E78.2 - Mixed hyperlipidemia, M81.0 - Age- related osteoporosis without current pathological fracture, R74.8 - Abnormal levels of other serum enzymes, Z78.0 - Asymptomatic menopausal state Aspartate Amino Transferase 03/30/25 E78.2 - Mixed hyperlipidemia, M81.0 - Age- related osteoporosis without current pathological fracture, R74.8 - Abnormal levels of other serum enzymes, Z78.0 - Asymptomatic menopausal state Basic Metabolic Panel Fasting 03/30/25 E78.2 - Mixed hyperlipidemia, M81.0 - Age-related osteoporosis without current pathological fracture, R74.8 - Abnormal levels of other serum enzymes, Z78.0 - Asymptomatic menopausal state
== END 2024-10-09 10:49 | disposition home or self-care (01) ==
PROVIDERS: PCP Internal Medicine; Visit Provider Internal Medicine
DX: M81.0 Age-related osteoporosis without current pathological fracture (principal); E78.2 Mixed hyperlipidemia; R74.8 Abnormal levels of other serum enzymes

== ENCOUNTER → 2024-10-09 09:42 | Outpatient (BNVA) | payer MEDICARE, SELFPAY | PROVIDERS: PCP Internal Medicine; Visit Provider Internal Medicine | DX: Z00.01 Encounter for general adult medical examination with abnormal findings (principal); E78.2 Mixed hyperlipidemia; R74.8 Abnormal levels of other serum enzymes; M81.0 Age-related osteoporosis without current pathological fracture | CPT/HCPCS: 96127; 99212 ==

== ENCOUNTER 2024-12-03 10:21 | Outpatient (REF) | payer MEDICARE, SELFPAY ==
[2024-12-03 14:03] LABS: Albumin Level 4.4 g/dL (3.5-5.0)
== END 2024-12-03 10:22 | disposition home or self-care (01) ==
LOC: HO.HMGCLDS 10:21
PROVIDERS: PCP Internal Medicine; Visit Provider Internal Medicine Endocrinology, Diabetes & Metabolism
DX: M81.0 Age-related osteoporosis without current pathological fracture (principal)
CPT/HCPCS: 36415; 82040; 82306

== ENCOUNTER 2024-12-10 07:54 | Outpatient (AMB) | payer MEDICARE, SELFPAY ==
--- NOTE | 2024-12-10 08:04 | A.OFFVIS_ITS ---
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 First diagnosed in last yr . Not Received treatment in the past No history of pathologic fracture or ONJ. Has several servings of dietary calcium per day in the form of cheese, yogurt . Not Takes Calcium supplement doses. Takes ? IU of Vitamin D daily. Denies ever using PPI, anticoagulant, antiepileptic or glucocorticoid medication. 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 UTD on dental cleanings and sees dentist every 6 months. No planned upcoming dental work or extractions. DXA dated 04/10/21 :FINDINGS: AP SPINE L1-L4: BMD 1.009 g/cm2, Z-score 1.0, T-score -1.4, osteopenia. LEFT FEMUR, NECK: BMD 0.581 g/cm2, Z-score -1.3, T-score -3.3, osteoporosis. LEFT FEMUR, TOTAL: BMD 0.604 g/cm2, Z-score -1.4, T-score -3.2, osteoporosis. IDENTIFIED RISK FACTORS: Menopausal. HISTORY OF FRACTURE: Humerus. MEDICATIONS: Calcium supplements or multivitamin. MM/XR DEXA axial skeleton IMPRESSION: 1. DIAGNOSIS: Osteoporosis based on the lowest T-score value of -3.3 in the femoral neck applying World Health Organization criteria.? ? Labs: Taking calcium and Vitamin D . No fx since last visit . . Currently on Evenity 210 mg Q monthly since 09/2024. Tolerating Evenity nicely. No fracture since last visit The patient is a 69-year-old female presenting for follow-up on osteoporosis management. She commenced on a treatment regimen with amenity starting September, which she has tolerated well. The patient has also been using vitamin D3 supplements for a month and continues complying with calcium supplements, with last calcium levels noted as normal at 9.1 back in September. Her bone density was previously low, and the patient has experienced no fractures since her last consultation. Future treatment options for osteoporosis, including the potential transition to Prolia were discussed, keeping her medical insurance considerations in mind. - Evenity or osteoporosis management, started September, well-tolerated - Vitamin D3, initiated approximately one month ago - Calcium supplement [facility] Medical History Mixed dyslipidemia Osteoporosis Degenerative disc disease, cervical Menopause Surgical History Hx of colonoscopy Fracture of arm History of lumpectomy Family History Father No problems noted. Mother No problems noted. Brother No problems noted. Brother No problems noted. Sister No problems noted. Sister No problems noted. Sister No problems noted. Son No problems noted. Daughter No problems noted. Maternal Grandmother Breast cancer Social History Housing: House Alcohol intake: current Alcohol intake frequency: holidays/special occasions only Patient Tobacco Use Status: Former Tobacco user Years Smoked: 10 yrs e-Cigarette/Vaping Use: Never Used Second Hand Smoke Exposure: No Current occupational status: retired Cognitive needs: No Hearing needs: No Vision needs: Yes Assessment & Plan Assessment & Plan (1) Osteoporosis: Code(s): M81.0 - Age-related osteoporosis without current pathological fracture Category: Medical Qualifiers: Osteoporosis type: age-related Presence of current pathological fracture: without current pathological fracture Qualified Code(s): M81.0 - Age- related osteoporosis without current pathological fracture Plan: This is a 69-year-old white female with a history of osteoporosis. Secondary workup was negative. Currently on Evenity after course of alendronate The plan is to continue the Evenity for 1 years course. 1. Osteoporosis: The patient continues osteoporosis treatment with Evenity, showing good response and tolerance. We have initiated a vitamin D3 regimen recently, and her calcium levels have been stable. No fractures reported since the last visit suggest efficacy in current management. Potential transition to Prolia was discussed to address previous low bone density, alongside strategizing insurance compliance. A re-evaluation of bone density is anticipated for spring, aligning with Medicare testing schedules to facilitate clinical decision-making for ongoing treatment adjustments. During the visit, I discussed with the patient her ongoing osteoporosis tr eatment plan, including the use of Amenity and recent addition of vitamin D3 supplements. We reviewed her calcium level history, with recent results within normal limits, and discussed the lack of recent fractures. I proposed the potential transition to Prolia for maintaining or improving her bone density, particularly given prior insurance hurdles. Scheduling of bone density tests around her Medicate coverage eligibility was planned. Further, we addressed the consideration of the shingles vaccine and identified no contraindications to her current treatment, emphasizing the importance of a comprehensive, continuous management approach for her osteoporosis. - Continue current medications: Amenity, vitamin D3, and calcium supplements. - Remain vigilant for any new symptoms or fractures and report them immediately. - Schedule bone density test according to Medicate coverage guidelines next year. - Consider receiving recommended vaccinations, including the shingles vaccine. - Follow-up in approximately seven months to evaluate progression and discuss treatment plans. T The patient had an opportunity to ask questions regarding treatment plan. The patient expressed understanding and agreement with the above treatment plan. Patient was informed and verbally consented to the use of an ambient scribe for clinic note documentation during this visit. Coding Level of Care Code Est Pt Level 3 (09654) Diagnoses Age-related osteoporosis without current pathological fracture M81.0 Osteoporosis type: age-related Presence of current pathological fracture: without current pathological fracture
[2024-12-10 08:07] VITALS: BP 146/70; PULSE 84; O2SAT 98; BMI 17.6
== END 2024-12-10 08:25 | disposition home or self-care (01) ==
LOC: HO.ENCR 07:55
PROVIDERS: PCP Internal Medicine; Visit Provider Internal Medicine Endocrinology, Diabetes & Metabolism
DX: M81.0 Age-related osteoporosis without current pathological fracture (principal)
CPT/HCPCS: 99213

== ENCOUNTER → 2024-12-10 07:54 | Outpatient (BNVA) | payer MEDICARE, SELFPAY | PROVIDERS: PCP Internal Medicine; Visit Provider Internal Medicine Endocrinology, Diabetes & Metabolism | DX: M81.0 Age-related osteoporosis without current pathological fracture (principal) | CPT/HCPCS: 99212 ==

== ENCOUNTER 2025-03-10 11:56 | Outpatient (REF) | payer MEDICARE, SELFPAY ==
--- OUTSIDE RECORDS SUMMARY | 2025-03-10 13:06 | XMS_ITS | Patient Health Record ---
Author Organization [facility] Address [address] [place] [id number] Care Team Providers Care Electrical Tryout Person Name Role Phone Bossman Hamm [phone] Reason For Referral No Information Plan Of Treatment No Information
== END 2025-03-10 11:57 | disposition home or self-care (01) ==
LOC: HO.MAMMO 11:56
PROVIDERS: PCP Internal Medicine; Visit Provider Internal Medicine
DX: Z12.31 Encounter for screening mammogram for malignant neoplasm of breast (principal)
CPT/HCPCS: 77063; 77067

== ENCOUNTER → 2025-03-10 12:30 | Outpatient (BNV) | payer MEDICARE, SELFPAY | PROVIDERS: PCP Internal Medicine; Visit Provider Internal Medicine | DX: Z12.31 Encounter for screening mammogram for malignant neoplasm of breast (principal) | CPT/HCPCS: 77063; 77067 ==

== ENCOUNTER 2025-04-08 07:45 | Outpatient (REF) | payer MEDICARE, SELFPAY ==
--- OUTSIDE RECORDS SUMMARY | 2025-04-08 07:48 | XMS_ITS | Patient Health Record ---
Author Organization [facility] Address [address] [place] [id number] Care Team Providers Care International Sales Representative Name Role Phone Bossman Hamm [phone] Reason For Referral No Information Plan Of Treatment No Information
[2025-04-08 10:46] LABS: Alanine Aminotransferase 50 U/L (0-31); Anion Gap 15 (12-20); Aspartate Amino Transferase 87 U/L (5-31); Blood Urea Nitrogen 8 mg/dL (9-16); Calcium 9.3 mg/dL (8.4-10.2); Carbon Dioxide 28 mmol/L (22-29); Chloride 107 mmol/L (96-108); Cholesterol 231 mg/dL (<200); Estimated Glomerular Filt Rate > 60; HDL Cholesterol 84 mg/dL (>40); Potassium 4.1 mmol/L (3.3-5.1); Sodium 146 mmol/L (135-145); Triglycerides 190 mg/dL (<150)
== END 2025-04-08 07:46 | disposition home or self-care (01) ==
LOC: HO.HMGCLDS 07:45
PROVIDERS: PCP Internal Medicine; Visit Provider Internal Medicine
DX: M81.0 Age-related osteoporosis without current pathological fracture (principal); E78.2 Mixed hyperlipidemia; R74.8 Abnormal levels of other serum enzymes; Z78.0 Asymptomatic menopausal state
CPT/HCPCS: 36415; 80048; 80061; 82306; 84450; 84460

== ENCOUNTER 2025-04-13 07:59 | Outpatient (AMB) | payer MEDICARE, SELFPAY ==
--- OUTSIDE RECORDS SUMMARY | 2025-04-13 08:02 | XMS_ITS | Patient Health Record ---
Author Organization [facility] Address [address] [place] [phone] Care Team Providers Care Home Health Scheduler Name Role Phone Bossman Hamm [phone] Reason For Referral No Information Plan Of Treatment No Information
--- NOTE | 2025-04-13 08:31 | A.OFFPC_ITS ---
Vital Signs 04/13/25 08:32 Height 5 ft 1 in Weight 96 lb BMI 18.1 BP 120/62 Blood Pressure Location Lt brachial Position Sitting Respiration 16 Pulse 84 Pulse Source Pulse Oximeter Temp 98.1 F Temp Source Oral Pulse Oximetry (%) 98 Intake Visit Reasons: 6 months f/up Intake Note: Pt is here today for her 6mo. f/u Allergies No Known Allergies Allergy (Verified 04/19/25 03:49) Medication List - Last Reconciled 04/19/25 by Saira Crooks MD cholecalciferol (vitamin D3) 25 mcg PO DAILY jiocpismntpn-yugnagub-utwoiv 1 tab PO DAILY omega-3 acid ethyl esters (Lovaza) 1 cap PO BID 3 months romosozumab-aqqg (Evenity) 210 mg (2.34 mL) subcut .monthly rosuvastatin 5 mg PO Q2D 3 months Tobacco use date assessed: 04/13/25 Fall risk assessment: No Falls in past year Last assessed Fall Risk: 04/13/25 Dental Screening Dental Screen Date: 04/13/25 Did you have a dental visit in the last 12 months?: No Did you have a dental problem in the last 6 months where you did not have access to dental care?: No Was dental information given to patient?: Patient has dentist HPI 6 months f/up HPI Details - The patient is a 70-year-old female he re for follow-up on her hyperlipidemia. She has elevated cholesterol levels, including total cholesterol, triglycerides, and LDL cholesterol. She is currently on rosuvastatin 5 mg, taken twice a week without muscle pain, and has been advised to increase the frequency to every other day. - Elevated liver enzymes: The patient's liver enzymes are slightly elevated, potentially due to increased triglycerides. - Needle phobia: The patient experiences anxiety and elevated blood pressure during injections, although her blood pressure is otherwise well-controlled. - Preventative care: A mammogram is sche duled for March next year, and a follow-u p appointment in December for a physical examination. [facility] Medical History Mixed dyslipidemia Osteoporosis Degenerative disc disease, cervical Menopause Surgical History Hx of colonoscopy Fracture of arm History of lumpectomy Family History Father No problems noted. Mother No problems noted. Brother No problems noted. Brother No problems noted. Sister No problems noted. Sister No problems noted. Sister No problems noted. Son No problems noted. Daughter No problems noted. Maternal Grandmother Breast cancer Social History Housing: House Alcohol intake: current Alcohol intake frequency: holidays/special occasions only Patient Tobacco Use Status: Former Tobacco user Years Smoked: 10 yrs e-Cigarette/Vaping Use: Never Used Second Hand Smoke Exposure: No Current occupational status: retired Cognitive needs: No Hearing needs: No Vision needs: Yes Questionnaire PHQ-9 Over the last 2 weeks, how often have you been bothered by any of the following problems? 1. Little interest or pleasure in doing things: not at all 2. Feeling down, depressed, or hopeless: not at all 3. Trouble falling or staying asleep, or sleeping too much: not at all 4. Feeling tired or having little energy: not at all 5. Poor appetite or overeating: not at all 6. Feeling bad about yourself - or that you are a failure or have let yourself or your family down: not at all 7. Trouble concentrating on things, such as reading the newspaper or watching television: not at all 8. Moving or speaking so slowly that other people could have noticed. Or the opposite - being so fidgety or restless that you have been moving around a lot more than usual: not at all 9. Thoughts that you would be better off or of hurting yourself in some way: not at all Total score: 0 Depression Screening Interpretation: Negative Depression Screening Done: Yes 03815 - PHQ-9 Billing: Yes Source: Developed by Drs. Bossman Glez, May Walker, Dmitri Matthews and colleagues, with an educational sonja from [employer]. Thrive Questionnaire Date Thrive assessed: 10/02/24 I am a: Patient What is your living situation today?: I have a steady place to live Within the past 12 months, did the food you bought not last and you didn't have the money to get more?: Never true Within the past 12 months, did you worry whether your food would run out before you got money to buy more?: Never true Do you have trouble paying for medicines?: No Do you have trouble getting transportation to medical appointments?: No Do you have trouble paying your heating and electricity bill?: No Do you have trouble taking care of your child, family member or friend?: I choose not to answer this question Do you have trouble with day-to-day activities such as bathing, preparing meals, shopping, managing finances, etc.?: No Are you currently unemployed and looking for a job?: I choose not to answer this question Are you interested in more education?: No Please select the resources that you would like help with: None Currently or been in a relationship where the following occur: No concerns reported THRIVE Score: 0 MIKHAIL-7 AMB Questionnaire MIKHAIL-7 Date MIKHAIL - 7 assessed: 10/09/24 Source: Developed by Drs. Bossman Glez, May Walker, Dmitri Matthews and colleagues, with an educational sonja from [employer]. Review of Systems Const Denies body aches, Denies fatigue, Denies headache(s) and Denies weakness Eyes Denies change in vision ENT Denies dizziness and Denies headache(s) Card Denies chest pain, Denies lightheadedness, Denies palpitations and Denies dyspnea Resp Denies cough and Denies dyspnea GI Denies abdominal pain, Denies change in bowel habits and Denies heartburn Musc Reports no additional complaints Skin/Breast Denies breast pain, Denies breast mass and Denies rash Neuro Denies dizziness, Denies headache(s) and Denies weakness Psych Reports no additional complaints Endo Denies fatigue, Denies polydipsia, Denies polyuria and Denies palpitations Dakotah/Lymph Reports no additional complaints Physical exam (Primary Care) Vital Signs: Last Vital Signs Temp 98.1 F 04/13/25 08:32 Pulse 84 04/13/25 08:32 Resp 16 04/13/25 08:32 BP 120/62 04/13/25 08:32 Pulse Ox 98 04/13/25 08:32 BMI result Body Mass Index 18.1 Tobacco/Smoking Status: Tobacco use Status Tobacco use date assessed 04/13/25 04/13/25 08:34 Patient Tobacco Use Status Former Tobacco user 08/04/25 08:34 e-Cigarette/Vaping Use Never Used 04/13/25 08:34 PHQ-9: PHQ-9 Score PHQ-9: Total score 0 04/13/25 09:00 Depression Screening Interpretation: Negative Thrive Assessment: Date of Thrive Assessment Date Thrive assessed 10/02/24 04/13/25 08:34 Currently or been in a relationship where the following occur: No concerns reported Const General: comfortable and no acute distress Orientation/consciousness: patient oriented x3 [facility] General nose exam: Normal external nose present Mouth: Normal oral and palatal mucosa present, oropharynx normal and moist mucous membranes Eyes General: appearance normal, both eyes and all related structures Neck Neck: Yes full ROM, Yes no lymphadenopathy and Yes supple Resp Effort & Inspection: normal respiratory effort and able to speak in complete sentences Auscultation: clear to auscultation bilaterally Cardio Rate: regular rate Rhythm: regular rhythm Heart sounds: S1 normal heart sound present and S2 normal heart sound present GI Inspection: Yes normal to inspection Palpation (GI): Soft to palpation, nontender and no masses Auscultation: normal bowel sounds Neuro General: patient oriented x3, gait normal, tone normal, moves all extremities and no focal motor deficits Gait exam (Neuro): Normal gait present Motor exam (neuro): 5/5 motor strength present throughout Extrem General: Yes full ROM, Yes no joint enlargement, Yes no clubbing, cyanosis or edema, Yes no calf tenderness and Yes normal gait Results Reviewed Results Reviewed: Name: Denise Steven Age/Sex: 70/F [facility] 1955 [id number] [id number] Attend Dr: Saira Crooks MD Re04/08/25 Status: DEP [facility] SPEC : [id number] PAOLA: 04/08/25 STATUS: COMP REQ : [id number] RECD: 04/08/25-[address]: Saira Crooks MD COMP: 04/08/25-1054 ENTERED: 04/08/25-[address]: ORDERED: Met Prof Fast, AST, ALT, Lipid Panel, Vitamin D 25-OH Test Result Flag Reference Sodium 146 H 135-145 mmol/L Potassium 4.1 3.3-5.1 mmol/L CL 107 96-108 mmol/L CO2 28 22-29 mmol/L Gap 15 12-20 BUN 8 L 9-16 mg/dL Creat 0.73 0.5-1.4 mg/dL eGFR > 60 Chronic Kidney Disease: Estimated GFR < 60 mL/min/1.73m2 Severe Kidney Disease: Estimated GFR < 15 mL/min/1.73m2 FBS 82 60-99 mg/dL CA 9.3 8.4-10.2 mg/dL AST (GOT) 87 H 5-31 U/L ALT (GPT) 50 H 0-31 U/L Triglyceride 190 H <150 mg/dL Desirable Triglyceride: less than 150 mg/dL Borderline High Triglyceride 150-199 mg/dL High Triglyceride: 200-499 mg/dL Very High Triglyceride: greater than or equal to 5OO mg/dL Cholesterol 231 H <200 mg/dL Desirable Cholesterol: less than 200 mg/dL Borderline High Cholesterol: 200-239 mg/dL High Cholesterol: greater than 239 mg/dL LDL Calculated 109 H <100 mg/dL Desirable LDL: less than 100 mg/dL Near Optimal/Above Optimal LDL: 110-129 mg/dL Borderline High LDL: 130-159 mg/dL High LDL: 160-189 mg/dL Very High LDL: greater than or equal to 190 mg/dL HDL 84 >40 mg/dL Desirable HDL: greater than 40 mg/dL Note: This HDL assay may give artificially low results in patients with liver disease. Vitamin D 25-OH 67.6 >30 ng/mL Health Based Reference Values* < 20 ng/mL Deficient 20-30 ng/mL Insufficient > 30 ng/mL Sufficient Coding Level of Care Code Est Pt Level 4 (36974) Diagnoses Mixed dyslipidemia E78.2 Elevated liver enzymes R74.8 Additional Codes PHQ-9 - 60573 - PHQ-9 Billing: Yes ([id number]) Assessment & Plan Assessment & Plan (1) Mixed dyslipidemia: Code(s): E78.2 - Mixed hyperlipidemia Category: Medical Plan: Reviewed recent fasting lab results with patient. Increase rosuvastatin dosing to 5 mg every other day, and added Jeffers 3 fatty acid supplements to take 1 twice a day day (2) Elevated liver enzymes: Comment: Reviewing record reveals AST> ALT- etoh likely plays role- recheck, she has a follow-up with PCP they will be available for her review Code(s): R74.8 - Abnormal levels of other serum enzymes Category: Medical Plan: Will continue to monitor liver enzymes Orders: Orders Lipid Panel 07/11/25 E78.2 - Mixed hyperlipidemia, R74.8 - Abnormal levels of other serum enzymes Liver Panel 07/11/25 E78.2 - Mixed hyperlipidemia, R74.8 - Abnormal levels of other serum enzymes Creatine Kinase Total 07/11/25 E78.2 - Mixed hyperlipidemia, R74.8 - Abnormal levels of other serum enzymes Medications: New omega-3 acid ethyl esters (Lovaza) 1 cap PO BID 180 caps 1RF 3 months Changed From rosuvastatin 5 mg PO 2XW 90 tabs 1RF E78.2 - Mixed hyperlipidemia To rosuvastatin 5 mg PO Q2D 45 tabs 1RF 3 months E78.2 - Mixed hyperlipidemia
[2025-04-13 08:32] VITALS: BP 120/62; PULSE 84; RESP 16; TEMP 36.7; O2SAT 98; BMI 18.1
== END 2025-04-13 09:02 | disposition home or self-care (01) ==
LOC: HO.HMCC 08:00
PROVIDERS: PCP Internal Medicine; Visit Provider Internal Medicine
DX: E78.2 Mixed hyperlipidemia (principal); R74.8 Abnormal levels of other serum enzymes

== ENCOUNTER → 2025-04-13 07:59 | Outpatient (BNVA) | payer MEDICARE, SELFPAY | PROVIDERS: PCP Internal Medicine; Visit Provider Internal Medicine | DX: E78.2 Mixed hyperlipidemia (principal); R74.8 Abnormal levels of other serum enzymes | CPT/HCPCS: 96127; 99212 ==

== ENCOUNTER 2025-07-08 09:05 | Outpatient (REF) | payer MEDICARE, SELFPAY ==
--- OUTSIDE RECORDS SUMMARY | 2025-07-08 10:13 | XMS_ITS | Patient Health Record ---
Author Organization [facility] Address [address] [place] [id number] Care Team Providers Care Forensics Analyst Name Role Phone Bossman Hamm [phone] Reason For Referral No Information Plan Of Treatment No Information
[2025-07-08 13:47] LABS: Alanine Aminotransferase 42 U/L (0-31); Albumin Level 4.9 g/dL (3.5-5.0); Alkaline Phosphatase 95 U/L (39-117); Anion Gap 13 (12-20); Aspartate Amino Transferase 75 U/L (5-31); Blood Urea Nitrogen 6 mg/dL (9-16); Calcium 9.4 mg/dL (8.4-10.2); Carbon Dioxide 28 mmol/L (22-29); Chloride 107 mmol/L (96-108); Cholesterol 227 mg/dL (<200); Estimated Glomerular Filt Rate > 60; HDL Cholesterol 102 mg/dL (>40); Potassium 3.6 mmol/L (3.3-5.1); Sodium 144 mmol/L (135-145); Total Protein 7.6 g/dL (6.5-8.0); Triglycerides 115 mg/dL (<150)
== END 2025-07-08 09:06 | disposition home or self-care (01) ==
LOC: HO.HMGCLDS 09:05
PROVIDERS: Absent Provider Student in an Organized Health Care Education/Training Program; PCP Internal Medicine; Visit Provider Internal Medicine
DX: E78.2 Mixed hyperlipidemia (principal); M81.0 Age-related osteoporosis without current pathological fracture; R74.8 Abnormal levels of other serum enzymes
CPT/HCPCS: 36415; 80048; 80061; 80076; 82306; 82550

== ENCOUNTER 2025-07-13 07:52 | Outpatient (AMB) | payer MEDICARE, SELFPAY ==
--- OUTSIDE RECORDS SUMMARY | 2025-07-13 07:55 | XMS_ITS | Patient Health Record ---
Author Organization [facility] Address [address] [place] [id number] Care Team Providers Care Machine Rebuilder Name Role Phone Bossman Hamm [phone] Reason For Referral No Information Plan Of Treatment No Information
[2025-07-13 08:01] VITALS: BP 140/72; PULSE 86; O2SAT 97; BMI 17.9
--- NOTE | 2025-07-13 08:01 | A.OFFVIS_ITS ---
Vital Signs 07/13/25 08:01 Height 5 ft 1.28 in Weight 95 lb 7.362 oz BMI 17.9 BP 140/72 H Blood Pressure Location Lt brachial Position Sitting Pulse 86 Pulse Source Pulse Oximeter Pulse Oximetry (%) 97 Oxygen Delivery Method Room Air Intake Visit Reasons: Osteoporosis Intake Note: Patient present today for Osteoporosis follow up. Educational Psychologist Required: No Accompanied by: Self / Same As Patient Allergies No Known Allergies Allergy (Verified 07/13/25 08:04) Medication List - Last Reconciled 07/13/25 by Bossman Benson MD cholecalciferol (vitamin D3) 25 mcg PO DAILY advqdzejpqmw-izlvmymi-stowpf 1 tab PO DAILY omega-3 acid ethyl esters (Lovaza) 1 cap PO BID 3 months romosozumab-aqqg (Evenity) 210 mg (2.34 mL) subcut .monthly rosuvastatin 5 mg PO Q2D 3 months HPI Comments Details: 70 YO Female with is seen in consultation at the request of PCP for Osteoporosis. First diagnosed in last yr . Not Received treatment in the past No history of pathologic fracture or ONJ. Has several servings of dietary calcium per day in the form of cheese, yogurt . Not Takes Calcium supplement doses. Takes ? IU of Vitamin D daily. Denies ever using PPI, anticoagulant, antiepileptic or glucocorticoid medication. 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 UTD on dental cleanings and sees dentist every 6 months. No planned upcoming dental work or extractions. DXA dated 04/10/21 :FINDINGS: AP SPINE L1-L4: BMD 1.009 g/cm2, Z-score 1.0, T-score -1.4, osteopenia. LEFT FEMUR, NECK: BMD 0.581 g/cm2, Z-score -1.3, T-score -3.3, osteoporosis. LEFT FEMUR, TOTAL: BMD 0.604 g/cm2, Z-score -1.4, T-score -3.2, osteoporosis. IDENTIFIED RISK FACTORS: Menopausal. HISTORY OF FRACTURE: Humerus. MEDICATIONS: Calcium supplements or multivitamin. MM/XR DEXA axial skeleton IMPRESSION: 1. DIAGNOSIS: Osteoporosis based on the lowest T-score value of -3.3 in the femoral neck applying World Health Organization criteria.? ? Labs: Taking calcium and Vitamin D . No fx since last visit . . Currently on Evenity 210 mg Q monthly since 09/2024. Tolerating Evenity nicely. No fracture since last visit. Last dose 09/15/2025 The patient is a 69-year-old female presenting for follow-up on osteoporosis management. She commenced on a treatment regimen with Evenity starting September, which she has tolerated well. The patient has also been using vitamin D3 supplements for a month and continues complying with calcium supplements, with last calcium levels noted as normal at 9.1 back in September. Her bone density was previously low, and the patient has experienced no fractures since her last consultation. Future treatment options for osteoporosis, including the potential transition to Prolia were discussed, keeping her medical insurance considerations in mind. - Evenity or osteoporosis management, started September, well-tolerated - Vitamin D3, initiated approximately one month ago - Calcium supplement [facility] Medical History Mixed dyslipidemia Osteoporosis Degenerative disc disease, cervical Menopause Surgical History Hx of colonoscopy Fracture of arm History of lumpectomy Family History Father No problems noted. Mother No problems noted. Brother No problems noted. Brother No problems noted. Sister No problems noted. Sister No problems noted. Sister No problems noted. Son No problems noted. Daughter No problems noted. Maternal Grandmother Breast cancer Social History Housing: House Alcohol intake: current Alcohol intake frequency: holidays/special occasions only Patient Tobacco Use Status: Former Tobacco user Years Smoked: 10 yrs e-Cigarette/Vaping Use: Never Used Second Hand Smoke Exposure: No Current occupational status: retired Cognitive needs: No Hearing needs: No Vision needs: Yes Physical Exam Vital Signs: BMI result Body Mass Index 17.9 Assessment & Plan Assessment & Plan (1) Osteoporosis: Code(s): M81.0 - Age-related osteoporosis without current pathological fracture Category: Medical Qualifiers: Osteoporosis type: age-related Presence of current pathological fracture: without current pathological fracture Qualified Code(s): M81.0 - Age- related osteoporosis without current pathological fracture Plan: This is a 69-year-old white female with a history of osteoporosis. Secondary workup was negative. Currently on Evenity after course of alendronate The plan is to continue the Evenity for 1 years course until 09/2025 . We will then transition to Prolia in 10/2025 considering baseline very low bone density and high risk for fracture. We will recheck DEXA bone density in 01/2026 and based on repeat bone density determine length of treatment of Prolia versus transitioning to alendronate Orders: Orders Calcium 3 Months M81.0 - Age-related osteoporosis without current pathological fracture Albumin Level 3 Months M81.0 - Age-related osteoporosis without current pathological fracture XR DEXA axial skeleton 6 Months M81.0 - Age-related osteoporosis without current pathological fracture Basic Metabolic Panel 3 Months M81.0 - Age-related osteoporosis without current pathological fracture Coding Level of Care Code Est Pt Level 3 (05554) Diagnoses Age-related osteoporosis without current pathological fracture M81.0 Osteoporosis type: age-related Presence of current pathological fracture: without current pathological fracture
== END 2025-07-13 08:20 | disposition home or self-care (01) ==
LOC: HO.ENCR 07:53
PROVIDERS: PCP Internal Medicine; Visit Provider Internal Medicine Endocrinology, Diabetes & Metabolism
DX: M81.0 Age-related osteoporosis without current pathological fracture (principal)
CPT/HCPCS: 99213

== ENCOUNTER → 2025-07-13 07:52 | Outpatient (BNVA) | payer MEDICARE, SELFPAY | PROVIDERS: PCP Internal Medicine; Visit Provider Internal Medicine Endocrinology, Diabetes & Metabolism | DX: M81.0 Age-related osteoporosis without current pathological fracture (principal) | CPT/HCPCS: 99212 ==

== ENCOUNTER 2025-07-15 08:02 | Outpatient (AMB) | payer MEDICARE, SELFPAY ==
[2025-07-15 08:07] VITALS: BP 120/62; PULSE 76; RESP 16; TEMP 36.7; O2SAT 97; BMI 18.0
--- NOTE | 2025-07-15 08:07 | A.OFFPC_ITS ---
Vital Signs 07/15/25 08:07 Height 5 ft 1 in Weight 95 lb 8 oz BMI 18.0 BP 120/62 Blood Pressure Location Lt brachial Position Sitting Respiration 16 Pulse 76 Pulse Source Pulse Oximeter Temp 98.1 F Temp Source Oral Pulse Oximetry (%) 97 Oxygen Delivery Method Room Air Intake Visit Reasons: 3m follow up Registered Occupational Therapist Required: No Allergies No Known Allergies Allergy (Verified 07/15/25 08:15) Medication List - Last Reconciled 07/15/25 by Saira Crooks MD cholecalciferol (vitamin D3) 25 mcg PO DAILY cmsdrfqsujzi-yetrbhmo-iqiecz 1 tab PO DAILY omega-3 acid ethyl esters (Lovaza) 1 cap PO BID 3 months romosozumab-aqqg (Evenity) 210 mg (2.34 mL) subcut .monthly rosuvastatin 5 mg PO Q2D 3 months Tobacco use date assessed: 07/15/25 Fall risk assessment: No Falls in past year Last assessed Fall Risk: 07/15/25 Dental Screening Dental Screen Date: 07/15/25 Did you have a dental visit in the last 12 months?: No Did you have a dental problem in the last 6 months where you did not have access to dental care?: No Was dental information given to patient?: Patient has dentist HPI 3m follow up HPI Details 70-year-old lady with history of mixed d yslipidemia, osteoporosis, here today for her follow-up. Has been taking Lovaza and rosuvastatin, compliant with taking her medications and getting regular exercise, compliant with recommended diet. Latest fasting labs showed improvement in her triglyceride levels lower LDL cholesterol and HDL cholesterol with improving liver enzyme levels. Patient denies any muscle pain, no rash or joint pain. She is currently on Evenity, sees Dr. Benson has 2 more doses left, and then will be switched to Prolia. Denies any adverse effects from taking the medication. [facility] Medical History Mixed dyslipidemia Osteoporosis Degenerative disc disease, cervical Menopause Surgical History Hx of colonoscopy Fracture of arm History of lumpectomy Family History Father No problems noted. Mother No problems noted. Brother No problems noted. Brother No problems noted. Sister No problems noted. Sister No problems noted. Sister No problems noted. Son No problems noted. Daughter No problems noted. Maternal Grandmother Breast cancer Social History Housing: House Alcohol intake: current Alcohol intake frequency: holidays/special occasions only Patient Tobacco Use Status: Former Tobacco user Years Smoked: 10 yrs e-Cigarette/Vaping Use: Never Used Second Hand Smoke Exposure: No Current occupational status: retired Cognitive needs: No Hearing needs: No Vision needs: Yes Questionnaire PHQ-9 Over the last 2 weeks, how often have you been bothered by any of the following problems? 1. Little interest or pleasure in doing things: not at all 2. Feeling down, depressed, or hopeless: not at all 3. Trouble falling or staying asleep, or sleeping too much: not at all 4. Feeling tired or having little energy: not at all 5. Poor appetite or overeating: not at all 6. Feeling bad about yourself - or that you are a failure or have let yourself or your family down: not at all 7. Trouble concentrating on things, such as reading the newspaper or watching television: not at all 8. Moving or speaking so slowly that other people could have noticed. Or the opposite - being so fidgety or restless that you have been moving around a lot more than usual: not at all 9. Thoughts that you would be better off or of hurting yourself in some way: not at all Total score: 0 Depression Screening Interpretation: Negative Depression Screening Done: Yes Source: Developed by Drs. Bossman Glez, May Walker, Dmitri Matthews and colleagues, with an educational sonja from [employer]. Thrive Questionnaire Date Thrive assessed: 10/02/24 I am a: Patient What is your living situation today?: I have a steady place to live Within the past 12 months, did the food you bought not last and you didn't have the money to get more?: Never true Within the past 12 months, did you worry whether your food would run out before you got money to buy more?: Never true Do you have trouble paying for medicines?: No Do you have trouble getting transportation to medical appointments?: No Do you have trouble paying your heating and electricity bill?: No Do you have trouble taking care of your child, family member or friend?: I choose not to answer this question Do you have trouble with day-to-day activities such as bathing, preparing meals, shopping, managing finances, etc.?: No Are you currently unemployed and looking for a job?: I choose not to answer this question Are you interested in more education?: No Please select the resources that you would like help with: None Currently or been in a relationship where the following occur: No concerns reported THRIVE Score: 0 AUDIT C Alcohol Use Questionnaire (AUDIT-C) 1. How often do you have a drink containing alcohol?: 2-3 times a week 2. How many drinks containing alcohol do you have on a typical day when you are drinking?: 3 or 4 3. How often do you have six or more drinks on one occasion?: Never Total Score: 4 MIKHAIL-7 AMB Questionnaire MIKHAIL-7 Date MIKHAIL - 7 assessed: 07/15/25 Feeling nervous, anxious, or on edge: 0 = Not at all Not being able to stop or control worryin = Not at all Worrying too much about different things: 0 = Not at all Trouble relaxin = Not at all Being so restless that it is hard to sit still: 0 = Not at all Becoming easily annoyed or irritable: 0 = Not at all Feeling afraid as if something awful might happen: 0 = Not at all Total MIKHAIL-7 score (0-4 normal; 5-9 mild; 10-14 moderate; 15-21 severe): 0 Source: Developed by Drs. Bossman Glez, May Walker, Dmitri Matthews and colleagues, with an educational sonja from [employer]. MIKHAIL-7 Assessment Billing MIKHAIL-7 Assessment Tool: MIKHAIL-7 Assessment 07909 Review of Systems Const Denies body aches, Denies fatigue, Denies headache(s) and Denies weakness Eyes Denies change in vision ENT Denies dizziness and Denies headache(s) Card Denies chest pain, Denies lightheadedness, Denies palpitations and Denies dyspnea Resp Denies cough and Denies dyspnea GI Denies abdominal pain, Denies change in bowel habits and Denies heartburn Musc Reports no additional complaints and Reports other (No history of fractures) Skin/Breast Denies breast pain, Denies breast mass and Denies rash Neuro Denies dizziness, Denies headache(s) and Denies weakness Psych Reports no additional complaints Endo Denies fatigue, Denies polydipsia, Denies polyuria and Denies palpitations Dakotah/Lymph Reports no additional complaints Physical exam (Primary Care) Vital Signs: Last Vital Signs Temp 98.1 F 07/15/25 08:07 Pulse 76 07/15/25 08:07 Resp 16 07/15/25 08:07 BP 120/62 07/15/25 08:07 Pulse Ox 97 07/15/25 08:07 Oxygen Delivery Method Room Air 07/15/25 08:07 BMI result Body Mass Index 18.0 Tobacco/Smoking Status: Tobacco use Status Tobacco use date assessed 07/15/25 07/15/25 08:12 Patient Tobacco Use Status Former Tobacco user 07/15/25 08:12 e-Cigarette/Vaping Use Never Used 07/15/25 08:12 PHQ-9: PHQ-9 Score PHQ-9: Total score 0 07/15/25 08:12 Depression Screening Interpretation: Negative Thrive Assessment: Date of Thrive Assessment Date Thrive assessed 10/02/24 07/15/25 08:12 Currently or been in a relationship where the following occur: No concerns reported Const General: comfortable and no acute distress Orientation/consciousness: patient oriented x3 [facility] General nose exam: Normal external nose present Mouth: Normal oral and palatal mucosa present, oropharynx normal and moist mucous membranes Eyes General: appearance normal, both eyes and all related structures Neck Neck: Yes full ROM, Yes no lymphadenopathy and Yes supple Resp Effort & Inspection: normal respiratory effort and able to speak in complete sentences Auscultation: clear to auscultation bilaterally Cardio Rate: regular rate Rhythm: regular rhythm Heart sounds: S1 normal heart sound present and S2 normal heart sound present GI Inspection: Yes normal to inspection Palpation (GI): Soft to palpation, nontender and no masses Auscultation: normal bowel sounds General: Yes no CVA tenderness Back/Spine/Pelvis Back: no CVA tenderness and No back tenderness Neuro General: patient oriented x3, gait normal, moves all extremities and no focal motor deficits Gait exam (Neuro): Normal gait present Extrem General: Yes full ROM, Yes no joint enlargement, Yes no clubbing, cyanosis or edema, Yes no calf tenderness and Yes normal gait Results Reviewed Results Reviewed: Name: Denise Steven Age/Sex: 70/F : 1955 Unit#: [id number] Attend Dr: Saira Crooks MD Re07/08/25 Status: DEP REF Location: [facility] Disch: SPEC : [id number] PAOLA: 07/08/25 STATUS: COMP REQ : [id number] RECD: 07/08/[address]: Gabriel Pryor MD COMP: 07/08/25 ENTERED: 07/08/[address]: Saira Crooks MD ORDERED: Liver Panel, BMP, CK Total, Lipid Panel, Vitamin D 25-OH Test Result Flag Reference Sodium 144 135-145 mmol/L Potassium 3.6 3.3-5.1 mmol/L CL 107 96-108 mmol/L CO2 28 22-29 mmol/L Gap 13 12-20 BUN 6 L 9-16 mg/dL Creat 0.68 0.5-1.4 mg/dL eGFR > 60 Chronic Kidney Disease: Estimated GFR < 60 mL/min/1.73m2 Severe Kidney Disease: Estimated GFR < 15 mL/min/1.73m2 Glucose, Random 87 60-115 mg/dL CA 9.4 8.4-10.2 mg/dL Total Bili 0.6 0.0-1.0 mg/dL Direct Bili 0.2 0.0-0.5 mg/dL AST (GOT) 75 H 5-31 U/L ALT (GPT) 42 H 0-31 U/L CK Total 93 26-140 U/L Protein, Total 7.6 6.5-8.0 g/dL Alb 4.9 3.5-5.0 g/dL Triglyceride 115 <150 mg/dL Desirable Triglyceride: less than 150 mg/dL Borderline High Triglyceride 150-199 mg/dL High Triglyceride: 200-499 mg/dL Very High Triglyceride: greater than or equal to 5OO mg/dL Cholesterol 227 H <200 mg/dL Desirable Cholesterol: less than 200 mg/dL Borderline High Cholesterol: 200-239 mg/dL High Cholesterol: greater than 239 mg/dL LDL Calculated 102 H <100 mg/dL Desirable LDL: less than 100 mg/dL Near Optimal/Above Optimal LDL: 110-129 mg/dL Borderline High LDL: 130-159 mg/dL High LDL: 160-189 mg/dL Very High LDL: greater than or equal to 190 mg/dL HDL 102 >40 mg/dL Desirable HDL: greater than 40 mg/dL Note: This HDL assay may give artificially low results in patients with liver disease. Alk Phos 95 39-117 U/L Vitamin D 25-OH 69.3 >30 ng/mL Health Based Reference Values* < 20 ng/mL Deficient 20-30 ng/mL Insufficient > 30 ng/mL Sufficient Coding Level of Care Code Est Pt Level 4 (38653) Complex EM visit Add On G2211 Diagnoses Mixed dyslipidemia E78.2 Age-related osteoporosis without current pathological fracture M81.0 Osteoporosis type: age-related Presence of current pathological fracture: without current pathological fracture Additional Codes MIKHAIL-7 Assessment Billing - MIKHAIL-7 Assessment Tool: MIKHAIL-7 Assessment 66221 ([id number]) Assessment & Plan Assessment & Plan (1) Mixed dyslipidemia: Code(s): E78.2 - Mixed hyperlipidemia Category: Medical Plan: Morning fasting labs reviewed, continued on Lovaza and rosuvastatin same dose in addition to adhering to a low-cholesterol diet and doing moderate intensity exercise at least 15 minutes daily. Repeat another fasting lipid in December prior to next appointment. (2) Osteoporosis: Code(s): M81.0 - Age-related osteoporosis without current pathological fracture Category: Medical Qualifiers: Osteoporosis type: age-related Presence of current pathological fracture: without current pathological fracture Qualified Code(s): M81.0 - Age- related osteoporosis without current pathological fracture Plan: Currently on Evenity, followed by Dr. Hawkins, continue with vitamin-D 3 supplements and taking adequate calcium from dietary sources. Orders: Orders Basic Metabolic Panel Fasting 12/05/25 E78.2 - Mixed hyperlipidemia, M81.0 - Age-related osteoporosis without current pathological fracture, Z78.0 - Asymptomatic menopausal state Lipid Panel 12/05/25 E78.2 - Mixed hyperlipidemia, M81.0 - Age-related osteoporosis without current pathological fracture, Z78.0 - Asymptomatic menopausal state Aspartate Amino Transferase 12/05/25 E78.2 - Mixed hyperlipidemia, M81.0 - Age- related osteoporosis without current pathological fracture, Z78.0 - Asymptomatic menopausal state Alanine Aminotransferase 12/05/25 E78.2 - Mixed hyperlipidemia, M81.0 - Age- related osteoporosis without current pathological fracture, Z78.0 - Asymptomatic menopausal state Vitamin D 25-OH Total 12/05/25 E78.2 - Mixed hyperlipidemia, M81.0 - Age- related osteoporosis without current pathological fracture, Z78.0 - Asymptomatic menopausal state
--- OUTSIDE RECORDS SUMMARY | 2025-07-15 08:11 | XMS_ITS | Patient Health Record ---
Author Organization [facility] Address [address] [place] [id number] Care Team Providers Care Plastics Nurse Name Role Phone Bossman Hamm [phone] Reason For Referral No Information Plan Of Treatment No Information
== END 2025-07-15 08:38 | disposition home or self-care (01) ==
LOC: HO.HMCC 08:03
PROVIDERS: PCP Internal Medicine; Visit Provider Internal Medicine
DX: E78.2 Mixed hyperlipidemia (principal); M81.0 Age-related osteoporosis without current pathological fracture

== ENCOUNTER → 2025-07-15 08:02 | Outpatient (BNVA) | payer MEDICARE, SELFPAY | PROVIDERS: PCP Internal Medicine; Visit Provider Internal Medicine | DX: E78.2 Mixed hyperlipidemia (principal); M81.0 Age-related osteoporosis without current pathological fracture | CPT/HCPCS: 96127; 99212 ==